=== PATIENT | male | born 1960 | race Caucasian/White ===

== ENCOUNTER 2018-03-11 18:23 | Inpatient (IN) | payer OTHER ==
--- NOTE | 2018-03-11 18:45 | CPEKG ---
Heart Rate: 161 RR Interval: 373 QRSD Interval: 68 QT Interval: 288 QTC Interval: 472 QRS Conger: 69 T Wave Conger: 52 EKG Severity - ABNORMAL ECG - EKG Impression: ATRIAL FIBRILLATION Electronically Signed By: Roya Ca 11-Mar-2018 21:37:43
--- NOTE | 2018-03-11 18:48 | EDPHY ---
HPI/HX/ROS/PE/MDM Narrative: CHIEF COMPLAINT: Chest pain, a-fib HISTORY OF PRESENT ILLNESS: The patient is a quadriplegic 57 y/o male complaining of intermittent mid- sternal chest pressure, onset several days ago. This morning he had indigestion and mild short of breath. He decided to present to his nurse practitioner and had an EKG preformed at 16:15, 3 hours ago, which revealed atrial fibrillation. He denies a sensation of palpitations, lightheadedness, or fainting. He has also had mid/low back spasms, a decreased appetite, increased tiredness, and more swelling in his legs for at least 5 days. These symptoms are similar to prior bladder infections. He is normally on a suppressive dose of Levaquin which he increased the past several days. No fever, chills, shortness of breath, palpitations, vomiting, diarrhea, headache. REVIEW OF SYSTEMS: Aside from elements discussed in the HPI, a comprehensive 10-point review of systems was reviewed and is negative. PAST MEDICAL HISTORY: Incomplete quadriplegic, suprapubic catheter, frequent bladder infections SOCIAL HISTORY: at bedside, lives in [place] VITAL SIGNS: Reviewed by me GENERAL: Pleasant, slightly pale, resting comfortably in no respiratory distress. HEENT: Atraumatic. Eyes: No icterus, no injection. Mouth: moist mucous membranes. No erythema or lesions. Neck: supple with no adenopathy. LUNGS: Breath sounds clear anteriorly and in upper lobes to auscultation bilaterally, no wheezes, rhonchi or rales. CARDIAC: Irregularly irregular, no rubs, murmurs or gallops. ABDOMEN: Abdomen is firm without tenderness, nondistended, bowel sounds normal. BACK: No CVA tenderness. EXTREMITIES: Chronic venostasis changes in lower extremities, 1+ pitting edema bilaterally, and cool to the touch. No trauma. NEURO: Alert and oriented, lower limbs are paretic, flaccid paralysis of the upper extremities, sparing the shoulders. SKIN: Warm and dry, no rash. PSYCHIATRIC: Normal mentation, no agitation. Portions of this note were transcribed by a medical planner. I personally performed a history, physical exam, medical decision making, and confirmed accuracy of information the transcribed note. ED Course: The patient is a quadriplegic 57 y/o male presenting with intermittent mid- sternal chest pressure, onset several days ago. He went to his physicians office and had an EKG preformed which revealed a-fib. On exam he has an irregularly irregular heart rate and clear breath sounds. He is also concerned that he has a bladder infection as he gets these frequently. EKG, chest x-ray, and labs ordered. 20mg IV Diltiazem and 1L IV NS given. I have also discussed plan for admission which the patient and his are comfortable with. 1842: 12-LEAD EKG: Please see the full report in [facility]. My interpretation: Atrial fibrillation with a rate of 161 1952: Patient chest x-ray reveals bilateral basilar atelectasis, worse on the left. Radiologist reading still pending. Patient received a bolus of Cardizem, 20 mg IV. Heart rate slowed to the upper 110s. He was placed on a Cardizem drip. 2013: Consulted with Dr. Ballesteros, pbx supervisor, regarding this patient. He will follow in the hospital. Discussed with Dr. Duc Ceballos, admitting physician. MDM: Differential diagnoses for the patient's presenting complaints was considered including but not limited to myocardial ischemia, acute coronary syndrome, pulmonary embolus, atrial fibrillation, atrial flutter, SVT, pneumonia, GI causes, reflux, indigestion, chest wall pain, pleural inflammation and pulmonary infectious causes. - Data Points Imaging Results: Imaging Impressions Chest X-Ray 03/11/18 19:08 Impression: 1. Possible posterior pneumonia. 2. Suspect cardiomegaly without obvious failure. Imaging: I viewed and interpreted images myself Laboratory Results: Laboratory Results 03/11/18 18:47 03/11/18 18:47 03/11/18 03/11/18 03/11/18 18:47 18:47 18:47 WBC 8.04 10^3/uL 10^3/uL (3.80-9.50) RBC 4.86 10^6/uL 10^6/uL (4.40-6.38) Hgb 13.9 g/dL g/dL (13.7-17.5) Hct 40.9 % % (40.0-51.0) MCV 84.2 fL fL (81.5-99.8) MCH 28.6 pg pg (27.9-34.1) MCHC 34.0 g/dL g/dL (32.4-36.7) RDW 14.0 % % (11.5-15.2) Plt Count 247 10^3/uL 10^3/uL (150-400) MPV 10.4 fL fL (8.7-11.7) Neut % (Auto) 64.8 % % (39.3-74.2) Lymph % (Auto) 25.0 % % (15.0-45.0) Edmunds % (Auto) 6.6 % % (4.5-13.0) Eos % (Auto) 2.5 % % (0.6-7.6) Baso % (Auto) 0.9 % % (0.3-1.7) Nucleat RBC Rel Count 0.0 % % (0.0-0.2) Absolute Neuts (auto) 5.21 10^3/uL 10^3/uL (1.70-6.50) Absolute Lymphs (auto) 2.01 10^3/uL 10^3/uL (1.00-3.00) Absolute Monos (auto) 0.53 10^3/uL 10^3/uL (0.30-0.80) Absolute Eos (auto) 0.20 10^3/uL 10^3/uL (0.03-0.40) Absolute Basos (auto) 0.07 10^3/uL 10^3/uL (0.02-0.10) Absolute Nucleated RBC 0.00 10^3/uL 10^3/uL (0-0.01) Immature Gran % 0.2 % % (0.0-1.1) Immature Gran # 0.02 10^3/uL 10^3/uL (0.00-0.10) Sodium 135 mEq/L mEq/L (135-145) Potassium 3.9 mEq/L mEq/L (3.5-5.2) Chloride 103 mEq/L mEq/L (97-110) Carbon Dioxide 20 mEq/l L mEq/l (22-31) Anion Gap 12 mEq/L mEq/L (8-16) BUN 14 mg/dL mg/dL (7-23) Creatinine 0.7 mg/dL mg/dL (0.7-1.3) Estimated GFR > 60 Glucose 86 mg/dL mg/dL (70-100) Calcium 9.1 mg/dL mg/dL (8.5-10.4) Total Bilirubin 1.3 mg/dL mg/dL (0.1-1.4) Conjugated Bilirubin 0.6 mg/dL H mg/dL (0.0-0.5) Unconjugated Bilirubin 0.7 mg/dL mg/dL (0.0-1.1) AST 31 IU/L IU/L (17-59) ALT 50 IU/L IU/L (21-72) Alkaline Phosphatase 93 IU/L IU/L (38-126) Troponin I 0.014 ng/mL ng/mL (0.000-0.034) NT-Pro-B Natriuret Pep 1520 pg/mL H pg/mL (0-125) Total Protein 7.3 g/dL g/dL (6.3-8.2) Albumin 4.2 g/dL g/dL (3.5-5.0) Lipase 61 IU/L IU/L (23-300) Medications Given: Discontinued Medications Diltiazem HCl (Cardizem 25 Mg/5 Ml Vial) 20 mg IVP EDNOW ONE Stop: 03/11/18 19:10 Last Admin: 03/11/18 19:26 Dose: 20 mg Sodium Chloride (Ns) 1,000 mls @ 0 mls/hr IV EDNOW ONE; Wide Open PRN Reason: Protocol Stop: 03/11/18 19:23 Last Admin: 03/11/18 19:25 Dose: 250 mls Diltiazem HCl 125 mg/ Dextrose 125 mls @ 0 mls/hr IV EDNOW ONE; As Directed PRN Reason: Protocol Stop: 03/11/18 19:55 Last Admin: 03/11/18 20:18 Dose: 125 mls General Time Seen by Provider: 03/11/18 18:46 Initial Vital Signs: Initial Vital Signs Temperature (C) 36.2 C 03/11/18 18:32 Heart Rate 108 H 03/11/18 18:32 Respiratory Rate 19 03/11/18 18:32 Blood Pressure 119/99 H 03/11/18 18:32 O2 Sat (%) 100 03/11/18 18:32 O2 Delivery Mode Room Air Allergies/Adverse Reactions: Sulfa (Sulfonamide Antibiotics) Allergy (Verified 03/11/18 20:01) Hives Home Medications: Medication Instructions Recorded Cyclobenzaprine [Flexeril 10 MG 10 mg PO HS 03/11/18 (*)] Herbals/Supplements -Info Only 1 ea PO DAILY 03/11/18 Ibuprofen [Motrin (*)] 800 mg PO BID 03/11/18 Oxybutynin Chloride [Oxybutynin 5 mg PO HS 03/11/18 Chloride Er] levOFLOXACIN [levAQUIN (*)] 250 mg PO DAILY 03/11/18 Departure - Departure Disposition: [facility] Inpatient Acute Clinical Impression: Atrial fibrillation Qualifiers: Atrial fibrillation type: unspecified Qualified Code(s): I48.91 - Unspecified atrial fibrillation Chest pain Qualifiers: Chest pain type: precordial pain Qualified Code(s): R07.2 - Precordial pain Condition: Fair Report Scribed for: Roya Ca Report Scribed by: Gillian Canas Date of Report: 03/11/18 Time of Report: 18:48
[2018-03-11 18:57] LABS: PLATELET COUNT 247 10^3/uL (150-400)
[2018-03-11] MEDS ORDERED: DILTIAZEM 25 MG/5 ML VIAL IVP ONE (19:09)
[2018-03-11] MEDS ORDERED: NS 1,000 ML IV ONE (19:22)
[2018-03-11] MEDS ORDERED: DILTIAZEM 125 MG in D5W 125 ML IV ONE (19:54)
[2018-03-11] MEDS ORDERED: NS 1,000 ML IV SCH (23:45)
[2018-03-11] MEDS ORDERED: HYDROCODONE/APAP 5/325 TAB PO PRN (23:59)
[2018-03-11] MEDS ORDERED: ONDANSETRON 4 MG/2 ML VIAL IVP PRN (23:59)
[2018-03-12] MEDS ORDERED: DILTIAZEM 125 MG in D5W 125 ML IV SCH (00:15)
[2018-03-12] MEDS: OXYBUTYNIN 5 MG EXT REL TAB PO SCH ×3 (00:50→20:24)
[2018-03-12] MEDS: ACETAMINOPHEN 325 MG TAB PO PRN ×3 (00:51→22:30)
[2018-03-12] MEDS: CYCLOBENZAPRINE 10 MG TAB PO SCH ×3 (00:51→20:24)
--- NOTE | 2018-03-12 03:26 | PDGENHP ---
History and Physical - Chief Complaint Chest pain and shortness of breath - History of Present Illness Source-patient provides history appears reliable. EMR was reviewed. HPI-this is a very pleasant 57-year-old gentleman with past medical history significant for incomplete quadriplegia, neurogenic bladder status post suprapubic catheter who presents emergency department today from his PCPs office with complaints of intermittent chest pain for the last several days to weeks as well as some dyspnea. Patient reports the last 6 days he has been particularly noting his symptoms which he is noted to be on the left side of his chest more like a burning sensation. Patient thought he was just having a little bit of indigestion and GI upset he did not take any medications to try to treat the pain. He denies any lightheadedness but possibly some palpitations right before arrival. He has noted a decline in his appetite and increasing fatigue particularly with exertion. Patient also has been noting increasing mid and low back pain spasms with she thought perhaps were related to UTI that was developing. Patient with a history of UTI given his history of suprapubic catheter which is changed by his urologist on a monthly basis. He is chronically on suppressive therapy with Levaquin. Patient with chronic lower extremity edema with subsequent development of vascular insufficiency and wounds. Patient denies any fevers or chills. He does note he feels a little bit warmer in the last few days than previously. He is also complaining of some nasal congestion sore throat related to his allergies. History Information - Allergies/Home Medication List Allergies/Adverse Reactions: Sulfa (Sulfonamide Antibiotics) Allergy (Verified 03/11/18 20:01) Hives Home Medications: Cyclobenzaprine [Flexeril 10 MG (*)] 10 mg PO HS 03/11/18 [Last Taken 03/10/18] Herbals/Supplements -Info Only 1 ea PO DAILY 03/11/18 [Last Taken 03/11/18] Ibuprofen [Motrin (*)] 800 mg PO BID 03/11/18 [Last Taken 03/11/18] Oxybutynin Chloride [Oxybutynin Chloride Er] 5 mg PO HS 03/11/18 [Last Taken ] levOFLOXACIN [levAQUIN (*)] 250 mg PO DAILY 03/11/18 [Last Taken 03/11/18] I have personally reviewed and updated: family history, medical history, social history, surgical history - Past Medical History Additional medical history: Incomplete quadriplegia wheelchair, recurrent UTI with suprapubic catheter in place - Surgical History Additional surgical history: Right hip surgery, suprapubic catheter - Family History Additional family history: Mother with history atrial fibrillation and developed myasthenia gravis age 70s. - Social History Smoking Status: Never smoked Alcohol Use: Occasionally (Once monthly) Drug Use: None Additional social history: Patient is lives with his . Wheelchair dependent. Course status-DNR DNI Review of Systems Review of Systems: ROS: 10pt was reviewed & negative except for what was stated in HPI & below Constitutional: Reports: other (Increased fatigue). Denies: chills, fever, weakness EENMT: Reports: nose congestion, other (Scratchy throat) Cardiac: Reports: chest pain, edema (Chronic). Denies: lightheadedness, palpitations Respiratory: Reports: shortness of breath. Denies: orthopnea, wheezing Gastrointestinal: Denies: vomitting, abdominal pain, abdominal distention, diarrhea, nausea Genitourinary: Reports: other (Suprapubic catheter in place) Muscolosketal: Reports: back pain (Occasional spasm). Denies: muscle pain Skin: Reports: no symptoms, lesions (Chronic wounds to bilateral lower legs.). Denies: rash Neurological: Reports: no symptoms, other (Incomplete quadriplegia). Denies: anxiety, depressed Physical Exam Physical Exam: Temp Pulse Resp BP Pulse Ox 36.4 C 105 H 18 136/96 H 95 03/12/18 00:05 03/12/18 00:05 03/12/18 00:05 03/12/18 00:05 03/12/18 00:05 Constitutional: no apparent distress, appears nourished, obese, other (NAD. Pleasant adult gentleman sitting up in bed.) Eyes: PERRL, anicteric sclera, EOMI, No scleral injection Ears, Nose, Mouth, Throat: moist mucous membranes, other (No nasal discharge), No poor dentition Cardiovascular: regular rate and rhythym (Slightly distant heart sounds.), no murmur, rub, or gallop, tachycardia (90s), edema (Two to 3+ pitting edema with chronic skin changes present.) Peripheral Pulses: 0: dorsalis-pedis (R) (Limited secondary to edema), dorsalis- pedis (L) (Limited secondary to edema) Respiratory: no respiratory distress, no rales or rhonchi, clear to auscultation , reduced air movement (Diminished bibasilarly.), No expiratory wheeze, No bronchial breath sounds Gastrointestinal: normoactive bowel sounds, soft, non-tender abdomen, no palpable masses, other (Obese abdomen soft but full), No tenderness, No distension Genitourinary: other (Suprapubic catheter in place.) Skin: warm, normal color, no rashes or abrasions, no fluctuance, No erythema Musculoskeletal: other (Patient with incomplete quadriplegia he is able to move his arms but has limited fine motor capabilities.) Neurologic: AAOx3, CN II-XII Intact, other (Extremity movement as noted above.) , No facial droop Psychiatric: interacting appropriately, not anxious, not encephalopathic, thought process linear, other (Patient is pleasant and in good spirits.) Lab Data & Imaging Review 03/12/18 03:46 03/11/18 18:47 Selected Entries 03/11/18 03/11/18 03/12/18 18:32 21:49 00:05 Blood Pressure Automatic Method Heart Rate 108 H 105 H Respiratory 19 18 Rate O2 Sat (%) 100 95 Temperature (C) 36.2 C 36.4 C Blood Pressure 119/99 H 124/86 H 136/96 H Mean Arterial 105 H 98 109 H Pressure (MAP) Activity During At Rest Vital Signs O2 Delivery Room Air Room Air Mode Blood Pressure Right Source Upper Arm Heart Rate/ Monitor Temperature Oral Oral Source Heart Rate Heart Rate/ Source Monitor Laboratory Tests 03/11/18 03/11/18 03/11/18 18:47 18:47 18:47 WBC 8.04 RBC 4.86 Hgb 13.9 Hct 40.9 MCV 84.2 MCH 28.6 MCHC 34.0 RDW 14.0 Plt Count 247 MPV 10.4 Neut % (Auto) 64.8 Lymph % (Auto) 25.0 Elk % (Auto) 6.6 Eos % (Auto) 2.5 Baso % (Auto) 0.9 Nucleat RBC Rel Count 0.0 Absolute Neuts (auto) 5.21 Absolute Lymphs (auto) 2.01 Absolute Monos (auto) 0.53 Absolute Eos (auto) 0.20 Absolute Basos (auto) 0.07 Absolute Nucleated RBC 0.00 Immature Gran % 0.2 Immature Gran # 0.02 Sodium 135 Potassium 3.9 Chloride 103 Carbon Dioxide 20 L Anion Gap 12 BUN 14 Creatinine 0.7 Estimated GFR > 60 Glucose 86 Calcium 9.1 Total Bilirubin 1.3 Conjugated Bilirubin 0.6 H Unconjugated Bilirubin 0.7 AST 31 ALT 50 Alkaline Phosphatase 93 Troponin I 0.014 NT-Pro-B Natriuret Pep 1520 H Total Protein 7.3 Albumin 4.2 Lipase 61 Urine Color Urine Appearance Urine pH Ur Specific Kirkland Urine Protein Urine Ketones Urine Blood Urine Nitrate Urine Bilirubin Urine Urobilinogen Ur Leukocyte Esterase Urine RBC Urine WBC Ur Epithelial Cells Urine Glucose 03/11/18 20:00 WBC RBC Hgb Hct MCV MCH MCHC RDW Plt Count MPV Neut % (Auto) Lymph % (Auto) Elk % (Auto) Eos % (Auto) Baso % (Auto) Nucleat RBC Rel Count Absolute Neuts (auto) Absolute Lymphs (auto) Absolute Monos (auto) Absolute Eos (auto) Absolute Basos (auto) Absolute Nucleated RBC Immature Gran % Immature Gran # Sodium Potassium Chloride Carbon Dioxide Anion Gap BUN Creatinine Estimated GFR Glucose Calcium Total Bilirubin Conjugated Bilirubin Unconjugated Bilirubin AST ALT Alkaline Phosphatase Troponin I NT-Pro-B Natriuret Pep Total Protein Albumin Lipase Urine Color PALE YELLOW Urine Appearance CLEAR Urine pH 5.0 Ur Specific Kirkland 1.004 Urine Protein NEGATIVE Urine Ketones NEGATIVE Urine Blood 2+ H Urine Nitrate POSITIVE H Urine Bilirubin NEGATIVE Urine Urobilinogen NEGATIVE Ur Leukocyte Esterase 2+ H Urine RBC 1-3 Urine WBC 5-10 H Ur Epithelial Cells NONE SEEN Urine Glucose NEGATIVE Imaging Review: Chest, AP and Lateral, 19:01 History: Atrial fibrillation, history of paraplegia Comparison: None Findings: Inspiratory phase is less than optimal on the frontal view. There may be cardiomegaly. The pulmonary vascularity is not obviously plethoric. There are small bilateral pleural effusions. There is retrocardiac consolidation possibly representing pneumonia. There is possibly a hiatal hernia present behind the heart. Impression: 1. Possible posterior pneumonia. 2. Suspect cardiomegaly without obvious failure. Visualized and Interpreted Chest x-ray results: Yes Visualized and Interpreted imaging results: Yes EKG additional interpertation: Atrial fib with RVR rate in the 160s. Assessment & Plan Assessment: Pleasant 57-year-old gentleman with history of incomplete quadriplegia due to accident presents home from PCPs office with complaints of chest pain and dyspnea found to be in AFib with RVR. New onset Atrial fibrillation with RVR (Acute) - patient with complaints of intermittent episodes of chest pain and dyspnea over the last several days to weeks. Will place patient on therapeutic Lovenox while we await Cardiology consult in the morning. Request day hospitalist to follow up with consultation. Will also obtain echocardiogram and check a TSH. Patient not surprisingly has elevated BNP given patient's significant tachycardia and vascular congestion likely secondary to AFib. Patient continues on a diltiazem drip with improvement in his rate from 160s down to the 90s. He has not yet converted but will continue to monitor on telemetry. Chest pain (Acute) -likely secondary to some demand in setting of significant tachycardia and pulmonary edema. Patient's troponin is negative there does not appear to be any acute findings. Now the patient's rate has improved will plan to repeat an EKG this morning. Dyspnea - likely related to rate. Chest x-ray also noted to have some vascular congestion and possibly infiltrate put in the posterior lung noble. Patient is quadriplegic some with limited inspiratory effort. He is afebrile and without any upper respiratory type symptoms at this time will hold off on any antibiotics. Patient is not hypoxic and his respiratory status is reported to have improved now that his rate is in the 90s and also controlled. Chronic medical issues Incomplete quadriplegia - supportive care. Chronic suprapubic catheter with asymptomatic bacteria likely colonized. Patient is afebrile. Continue his antibiotic prophylaxis. Chronic lower extremity edema with chronic skin changes wound care consult. FEN - IV fluids for gentle hydration overnight. Electrolyte monitoring replacement if needed. Cardiac diet ordered. PPX-status post therapeutic Lovenox. Patient is not a candidate for SCDs secondary to his chronic lower extremity edema and wounds. Cor status is DNR DNI Disposition-patient has been admitted inpatient status on PCU floor for close cardiac monitoring. Anticipate greater than 2 midnight stay given persistence the patient's AFib, tachycardia and need for further evaluation.
[2018-03-12 04:17] LABS: PLATELET COUNT 221 10^3/uL (150-400)
[2018-03-12 04:32] LABS: INR 1.14 (0.83-1.16); PROTIME(PATIENT) 14.8 SEC (12.0-15.0)
[2018-03-12] MEDS ORDERED: ENOXAPARIN 40 MG/0.4 ML SYR SC SCH (09:00)
--- NOTE | 2018-03-12 09:11 | CPEKG ---
Heart Rate: 108 RR Interval: 556 QRSD Interval: 72 QT Interval: 344 QTC Interval: 461 QRS Girard: 58 T Wave Girard: 82 EKG Severity - ABNORMAL ECG - EKG Impression: ATRIAL FIBRILLATION/FLUTTER EKG Impression: No significant change from March 11, 2018 Electronically Signed By: Jersey Horton 12-Mar-2018 10:43:04
--- NOTE | 2018-03-12 09:26 | PDMN ---
Medical Necessity Medical necessity: M505 afib- A-1 day: new onset afib with RVR, persistent tachycardia, dyspnea, Cp , pt is quadriplegic with limited inspiratory effort., CXR shows vascular congestion and poss infiltrate in posterior lung noble,- poss PNA- suspect cardiomegaly without obvious failure. sm. bilateral pleural effusions. anticipate > 2 midnights ongoing med nec care , further monitoring , eval and tx.
[2018-03-12] MEDS ORDERED: ENOXAPARIN 60 MG/0.6 ML SYR SC ONE (11:45)
--- NOTE | 2018-03-12 12:45 | ECHO ---
[email or web address] [address] [address] Main: [phone] Fax: [email or web address] Echocardiogram Name: WILBER SANTOS MR#: [id number] Study Date: 03/12/2018 Study Time: 11:58 AM Date of : 1960 Age: 57 year(s) Height: 185.4 cm (73 in.) Weight: 103.87 kg (229 lb.) BSA: 2.28 m2 Gender: Male Examination: Echo Indication: new afib Image Quality: Technically Difficult Contrast: Requested by: Patrice Pleitez BP: 133 mmHg/111 mmHg Heart Rate: Rhythm: Atrial fibrillation Indication: new afib Procedure Staff Career Services Assistant: Candy Worrell [facility] Reading Physician: Patrice Hood MD Requesting Provider: Conclusions: Normal size left ventricle. Borderline concentric LV hypertrophy. Low normal left ventricular systolic function. EF is 52 %. The mitral valve is normal in appearance. Trivial to mild mitral regurgitation. Aortic valve is not well visualized. There is no aortic valve regurgitation. No aortic valve stenosis is present. Moderate tricuspid regurgitation is present. The pulmonary artery pressure is normal. Measurements: Chambers Valvular Assessment AV/MV Valvular Assessment TV/PV Normal Normal Normal Name Value Range Name Value Range Name Value Range Ao Jimena (MM): 3.4 cm (2.2 cm-3.7 AV Vmax: 1.37 m/s (1 m/s-1.7 TR Vmax: 2.46 mm/s ( - ) cm) m/s) TR PGmax: 24 mmHg ( - ) IVSd (2D): 1.0 cm (0.6 cm-1.1 AV maxP mmHg ( - ) syst. PAP: 29 mmHg ( - ) cm) LVOT Vmax: 0.97 m/s (0.7 m/s-1.1 PV Vmax: 0.99 m/s (0.6 m/s-0.9 LVDd (2D): 4.5 cm (4.2 cm-5.9 m/s) m/s) cm) MV E Vmax: 0.68 m/s ( - ) PV PGmax: 4 mmHg ( - ) LVDs (2D): 3.3 cm (2.1 cm-4 cm) LVPWd (2D): 1.0 cm (0.6 cm-1 cm) LVEF (2D): 52 (>=54 %) RVDd(2D): 3.7 cm (1.9 cm-3.8 cmmm) Patient: WILBER SANTOS Study Date: 03/12/2018 Page 1 of 2 11:58 AM Continued Measurements: Chambers Valvular Assessment AV/MV Valvular Assessment TV/PV Name Value Name Value Name Value LADs: 3.1 cm MV E' Septal: 0.09 m/s CVP (est.): 5 mmHg LADs Lon.2 cm MV E/E' Septal: 7.70 LA Area: 17.5 cm2 MV E/E' Lateral: 6.40 Additional Vessels Name Value Ao Ascendin.5 cm Findings: Left Ventricle: Normal size left ventricle. Borderline concentric LV hypertrophy. Low normal left ventricular systolic function. EF is 52 %. Unable to assess diastolic dysfunction. Right Ventricle: Normal size right ventricle. Normal RV function. Left Atrium: The left atrium is normal in size. Right Atrium: The right atrium is normal in size. Mitral Valve: The mitral valve is normal in appearance. Trivial to mild mitral regurgitation. No mitral stenosis is present. Aortic Valve: Aortic valve is not well visualized. There is no aortic valve regurgitation. No aortic valve stenosis is present. Tricuspid Valve: The tricuspid valve is normal in appearance and function. Moderate tricuspid regurgitation is present. The pulmonary artery pressure is normal. Right ventricular systolic pressure measures 29mmHg. Pulmonic Valve: The pulmonic valve is normal in appearance. There is no pulmonic regurgitation seen. Aorta: Normal size aortic root measuring 3.4 cm. Normal size ascending aorta measuring 3.5 cm. IVC: The IVC is not well visualized. Pericardium: No pericardial effusion. (No Signature Object) Patient: WILBER SANTOS Study Date: 03/12/2018 Page 2 of 2 11:58 AM [id number]
[2018-03-12] MEDS ORDERED: FUROSEMIDE 20 MG/2 ML VIAL IVP ONE ×2 (14:04→16:45)
[2018-03-12] MEDS ORDERED: ATROPINE SULFATE 1 MG/10 ML SYR IVP ONE (14:33)
--- NOTE | 2018-03-12 15:02 | ASMTCASEMG ---
Living Arrangements What is your living Answers: With Spouse arrangement? Who do you live with? Type Of Residence What kind of residence do Answers: House you live in? Discharge Plan Comments Coordination Status Comments Notes: Pts case discussed in tx rounds. Pt is a 57 y/o man admitted for a new onset of afib, chest pain and an UTI. Pt is an incomplete quad. Cardiology is consulting on this case. No therapies ordered at this time. Pt does not think he needs any additional services at this time. Pt reports that his is his primary caregiver. Pt reports having a lift at home and reports that his son lives nearby. CM available for changes. Plan: Independent Date Signed: 03/12/2018 03:01 PM Electronically Signed By:RODNEY Saxena
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
[2018-03-12] MEDS: DILTIAZEM 30 MG TAB PO SCH ×2 (16:54→20:23)
[2018-03-12] MEDS: ENOXAPARIN 100 MG/ML SYR SC SCH (22:30)
--- NOTE | 2018-03-12 22:50 | HOSPPROG ---
Hospitalist Progress Note Assessment/Plan: Assessment: 57 yo M p/w acute chest pain and dyspnea in setting of new diagnosis atrial fibrillation w/ RVR Plan: # Chest pain. Acute, new problem, further w/u indicated. Unclear if 2/2 symptomatic afib or angina, currently less severe now that RVR controlled - d/w Dr. Barron, he recommends lexiscan stress in AM to eval, as it is unclear if angina provoked his Afib - potential for PE is moot point, as patient will be systemically anticoagulated regardless, so will not pursue additional scan # Atrial fibrillation. Acute RVR, new diagnosis, unclear precipitant, ongoing afib w/ rate 90-100 on tele (personally interpreted) - d/w patient, plan to overlap dilt gtt w/ introduction of PO dilt 30mg q6, and , if patient remains in Afib in AM, cardiology will DCCV/MATTI - TSH wnl - Echo w/ mildly reduced EF, LVH, mod TR - started on lovenox 100 bid, anticipated adjusting to either coumadin or DOAC in AM # Acute systolic and diastolic CHF Exacerbation. 2/2 LVH and reduced filling time w/ RVR, mildly reduced EF on echo likely rate related - CXR w/ mild interstitial infiltrates, given 20mg IV lasix today, monitor I/O, consider repeating in AM if requiring supp o2 - repeat Cr in AM # Paraplegia. S/p spinal chord injury, wheelchair bound, ongoing asst ADLs, patient reports he will be able to transition home s/p hospitalization # Chronic bacturia. POA, w/ SP catheter, unclear if he has UTI, monitor UCX and WBC - cont ppx Abx # Pressure injury. POA, L great toe abrasion, wound care consult Diet. Regular PPx. High risk, on lovenox Code. DNR Dispo. ADD uncertain, earliest 03/13 PM s/p stabilization of rhythm. Subjective: no active chest pain, not lightheaded Objective: Vital Signs Temp Pulse Resp BP Pulse Ox 36.4 C 101 H 20 128/96 H 96 03/12/18 16:00 03/12/18 16:00 03/12/18 16:00 03/12/18 16:00 03/12/18 16:00 Laboratory Results 03/12/18 03:46 03/12/18 03:46 03/11/18 03/12/18 03/13/18 05:59 05:59 05:59 Intake Total 1309 1700 Output Total 2049 2700 Balance -741 -1000 PT 14.8 SEC (12.0-15.0) 03/12/18 03:46 INR 1.14 (0.83-1.16) 03/12/18 03:46 - Physical Exam Constitutional: no apparent distress, not in pain, chronically ill appearing, No uncomfortable Cardiovascular: irregularly irregular, tachycardia, edema (1+ bilt LE), No systolic murmur Respiratory: reduced air movement, expiratory wheeze, inspiratory crackles, bronchial breath sounds, respiratory distress Gastrointestinal: normoactive bowel sounds, soft, non-tender abdomen, no palpable masses Skin: other (wound LLE great toe) Neurologic: AAOx3, sensation intact bilaterally Psychiatric: interacting appropriately, not anxious, not encephalopathic, thought process linear ICD10 Worksheet Patient Problems: Problems Problem Status Onset Atrial fibrillation Acute Chest pain Acute
[2018-03-13] MEDS: DILTIAZEM 30 MG TAB PO SCH ×4 (01:39→21:19)
[2018-03-13] MEDS ORDERED: ATROPINE SULFATE 1 MG/10 ML SYR IVP ONE ×2 (06:00→08:15)
[2018-03-13] MEDS ORDERED: REGADENOSON 0.4 MG/5 ML SYR IVP ONE (08:54)
[2018-03-13] MEDS ORDERED: CEFEPIME HCL 1 GM in STERILE WATER INJ 11.3 ML IV SCH ×2 (09:28→10:00)
--- NOTE | 2018-03-13 10:04 | CPR ---
[f rep st] NONINVASIVE CARDIAC PROCEDURE REPORT DATE OF PROCEDURE: 03/13/2018 PROCEDURE: Lexiscan nuclear stress test. REASON FOR TEST: 1. Atrial flutter. 2. Chest discomfort. Resting EKG shows atrial fib/ flutter with a ventricular rate of 149, resting blood pressure 136/85, oxygen saturation 97%. He denies chest pain, dizziness or lightheadedness. He is a paraplegic. STRESS PORTION: Lexiscan was injected rapidly, followed by saline flush. Cardiolite was then injected, followed by saline flush. He noted mild shortness of breath. He had a blood pressure 153/115, oxygen saturation 99%, max heart rate 148. He recovered nicely. He remains in atrial flutter. Blood pressure difficult to get 145/90, oxygen saturation 97%. At this time, he currently is stable for nuclear imaging. Patrice Ballesteros MD supervising physician. /[id number]/MODL MTDD
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
[2018-03-13] MEDS: ENOXAPARIN 100 MG/ML SYR SC SCH ×2 (10:41→21:19)
[2018-03-13] MEDS ORDERED: ATROPINE SULFATE 1 MG/10 ML SYR ONE (11:00)
--- NOTE | 2018-03-13 11:52 | CPEKG ---
Heart Rate: 89 RR Interval: 674 P-R Interval: 172 QRSD Interval: 72 QT Interval: 392 QTC Interval: 477 P Jackson: 59 QRS Jackson: 52 T Wave Jackson: 59 EKG Severity - ABNORMAL ECG - EKG Impression: SINUS RHYTHM EKG Impression: SUPRAVENTRICULAR BIGEMINY EKG Impression: PROBABLE LEFT ATRIAL ABNORMALITY EKG Impression: BORDERLINE PROLONGED QT INTERVAL EKG Impression: LATERAL T WAVE ABNORMALITY EKG Impression: RESOLUTION OF ATRIAL FIBRILLATION/FLUTTER SINCE MARCH 12, 2018 Electronically Signed By: Jersey Horton 14-Mar-2018 07:35:05
[2018-03-13] MEDS ORDERED: PROPOFOL 200 MG/20 ML VIAL ONE (11:55)
[2018-03-13] MEDS ORDERED: LIDOCAINE 2% 5 ML SDV ONE (11:57)
--- NOTE | 2018-03-13 12:06 | HOSPPROG ---
Hospitalist Progress Note Assessment/Plan: #New atrial fibrillation with RVR -infection vs. ischemia. Nuclear stress abnormal; rest images tomorrow -successful cardioversion. Lovenox, Dilt #Paraplegia: Baclofen for spasms #Recurrent UTI: due to chronic munoz. Pseudomonas on culture. Rec cefepime until cultures back, but patient decline and wants to stay on LQ. Will change it to treatment dose #Acute decompensated systolic/diastolic HR: stress pending. A fib likely contributing. Gentle diuresis #Left great toe pressure injury: present at admission. Wound care #Diet: regular #DVT ppx: Lovenox #Disp: cont inpatient admission for further cardiac testing, telemetry Subjective: chest feels tight this morning. No dizziness or lightheadedness Objective: Vital Signs Temp Pulse Resp BP Pulse Ox 36.4 C 125 H 16 120/86 H 96 03/13/18 07:19 03/13/18 07:19 03/13/18 07:19 03/13/18 07:19 03/13/18 07:19 Laboratory Results 03/13/18 03:52 03/13/18 03:52 03/12/18 03/13/18 03/14/18 05:59 05:59 05:59 Intake Total 1309 1770 Output Total 2050 2850 500 Balance -741 -8815 -500 PT 14.8 SEC (12.0-15.0) 03/12/18 03:46 INR 1.14 (0.83-1.16) 03/12/18 03:46 - Time Spent With Patient Time Spent with Patient: greater than 35 minutes Time Spent with Patient: Greater than 35 minutes spent on this patients care, greater than 50% of time spent counseling, educating, and coordinating care regarding the above mentioned plan. - Physical Exam Constitutional: no apparent distress Eyes: PERRL Ears, Nose, Mouth, Throat: moist mucous membranes Cardiovascular: irregularly irregular, tachycardia Respiratory: no respiratory distress Gastrointestinal: normoactive bowel sounds Genitourinary: other (suprapubic catheter in place with yellow urine) Skin: warm Musculoskeletal: full muscle strength Neurologic: AAOx3, CN II-XII Intact Psychiatric: interacting appropriately ICD10 Worksheet Patient Problems: Problems Problem Status Onset Atrial fibrillation Acute Chest pain Acute
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
--- NOTE | 2018-03-13 12:15 | ECHO ---
[email or web address] [address] Main: [phone] Fax: Transesophageal Echocardiography Name: WILBER SANTOS MR#: [id number] Study Date: 03/13/2018 Study Time: 11:15 AM Date of : 1960 Age: 57 year(s) Height: ( ) Weight: ( ) BSA: Gender: Male Examination: MATTI Indication: Pre Cardioversion Image Quality: Contrast: Requested by: John Ceballos Heart Rate: Rhythm: BP: / Procedure Staff Nicking Machine Operator: Clay Ortega RDCS Reading Physician: Woodrow Amador MD Requesting Provider: MATTI Exam Details Conclusions: Normal global systolic LV function. Good color flow doppler in the left atrial appendage. No thrombus in left appendage. There is no evidence of CHULA Thrombus noted. Proceeded with successful elective DC cardioversion.. Measurements: Chambers Valvular Assessment AV/MV Valvular Assessment TV/PV Normal Normal Normal Name Value Range Name Value Range Name Value Range Additional Measurements: Findings: Left Ventricle: Normal global systolic LV function. Left Atrial Appendage: Good color flow doppler in the left atrial appendage. No thrombus in left appendage. There is no evidence of CHULA Thrombus noted. Proceeded with successful elective DC cardioversion.. l1n Patient: WILBER SANTOS Study Date: 03/13/2018 Page 1 of 2 11:15 AM (No Signature Object) Patient: WILBER SANTOS Study Date: 03/13/2018 Page 2 of 2 11:15 AM [id number]
--- NOTE | 2018-03-13 12:26 | PDANEPAE ---
ANE History of Present Illness afib - Nasim/cv ANE Past Medical History - Cardiovascular History Hx Hypertension: No Hx Arrhythmias: Yes Hx Chest Pain: No Hx Coronary Artery / Peripheral Vascular Disease: No Hx CHF / Valvular Disease: No Hx Palpitations: No - Pulmonary History Hx COPD: No Hx Asthma/Reactive Airway Disease: No Hx Recent Upper Respiratory Infection: No Hx Oxygen in Use at Home: No Hx Sleep Apnea: No - Neurologic History Hx Cerebrovascular Accident: No Hx Seizures: No Hx Dementia: No Neurologic History Comment: C4-5-6 partial quad - Endocrine History Hx Diabetes: No Hypothyroid: No Hyperthyroid: No - Renal History Hx Renal Disorders: Yes Renal History Comment: suprapubic catheter, recurrent UTIs - Liver History Hx Hepatic Disorders: No - Neurological & Psychiatric Hx Hx Neurological and Psychiatric Disorders: No - Chronic Pain History Chronic Pain: Yes ANE Review of Systems Review of Systems: - Exercise capacity Exercise capacity: limited by disability ANE Patient History - Allergies Allergies/Adverse Reactions: Sulfa (Sulfonamide Antibiotics) Allergy (Verified 03/11/18 20:01) Hives - Home Medications Home Medications: Cyclobenzaprine [Flexeril 10 MG (*)] 10 mg PO HS 03/11/18 [Last Taken 03/10/18] Herbals/Supplements -Info Only 1 ea PO DAILY 03/11/18 [Last Taken 03/11/18] Ibuprofen [Motrin (*)] 800 mg PO BID 03/11/18 [Last Taken 03/11/18] Oxybutynin Chloride [Oxybutynin Chloride Er] 5 mg PO HS 03/11/18 [Last Taken ] levOFLOXACIN [levAQUIN (*)] 250 mg PO DAILY 03/11/18 [Last Taken 03/11/18] - Anes Hx Anes Hx: no prior problems - Smoking Hx Smoking Status: Never smoked - Alcohol Use Alcohol Use: Occasionally (Once monthly) ANE Labs/Vital Signs - Labs Result Diagrams: 03/13/18 03:52 03/13/18 03:52 - Vital Signs Blood Pressure: 120/86 Heart Rate: 125 Respiratory Rate: 16 O2 Sat (%): 96 Height: 185.42 cm Weight: 107.6 kg ANE Physical Exam - Airway Mallampati Score: Class 2 Mouth exam: normal dental/mouth exam - Pulmonary Pulmonary: no respiratory distress - Cardiovascular Cardiovascular: irregularly irregular - ASA Status ASA Status: II ANE Anesthesia Plan Anesthesia Plan: GA with mask
--- NOTE | 2018-03-13 12:27 | POSTANESTH ---
Post Anesthetic Evaluation Cardiovascular Status: Normal, Stable Respiratory Status: Normal, Stable Level of Consciousness/Mental Status: Can Participate in Eval Pain Control: Adequate, Prn Tx Ordered Nausea/Vomiting Control: Adequate, Prn Tx Ordered Complications Possibly Related to Anesthesia: None Noted (recovered in rm 219, report to nurse)
--- NOTE | 2018-03-13 13:28 | ASMTCMCOM ---
CM Note CM Note Notes: Chart reviewed. Patient care discussed in rounds. No therapies ordered. Patient is an incomplete quadrapalegic and likely at baseline.CM to luz elena. Date Signed: 03/13/2018 01:27 PM Electronically Signed By:Yu Del Rosario RN
--- NOTE | 2018-03-13 17:54 | CPEKG ---
Heart Rate: 89 RR Interval: 674 P-R Interval: 176 QRSD Interval: 74 QT Interval: 360 QTC Interval: 439 P Grapeview: 57 QRS Grapeview: 48 EKG Severity - ABNORMAL ECG - EKG Impression: SINUS RHYTHM EKG Impression: SUPRAVENTRICULAR BIGEMINY EKG Impression: NONSPECIFIC T ABNORMALITIES, LATERAL LEADS EKG Impression: POSSIBLE LEFT ATRIAL ABNORMALITY. EKG Impression: NO SIGNIFICANT CHANGE SINCE MARCH 13, 2018, 11:49 Electronically Signed By: Jersey Horton 14-Mar-2018 07:33:30
[2018-03-13] MEDS: OXYBUTYNIN 5 MG EXT REL TAB PO SCH (21:19)
[2018-03-13] MEDS: ACETAMINOPHEN 325 MG TAB PO PRN (21:54)
[2018-03-13] MEDS: CYCLOBENZAPRINE 10 MG TAB PO PRN (21:55)
[2018-03-14] MEDS: DILTIAZEM 30 MG TAB PO SCH ×4 (04:57→21:34)
[2018-03-14] MEDS ORDERED: DILTIAZEM 25 MG/5 ML VIAL IVP SCH (06:00)
--- NOTE | 2018-03-14 09:10 | SOAPPROG ---
SAUL Progress Note Assessment/Plan: 1. Chest pain - Pt presents with recent onset of chest pain. ? secondary to A- fib vs CAD. EKG with no acute ST or T changes. Troponin wnl. Stress images on 03/13 with inferior perfusion defect. Rest images scheduled for today. --> Await stress test results. Consider angiogram in am if abnormal. 2. Atrial fibrillation - Pt presents with a recent diagnosis of A-fib. TSH wnl. Echocardiogram with mildly reduced LVEF but otherwise unremarkable. He is s/p MATTI/CV on 03/13 with return of NSR. However, he went back into A-fib later in the day. Will load with IV amiodarone and consider repeat DCCV in 2 days. --> IV amiodarone --> Continue diltiazem as needed for rate control --> Continue lovenox for anticoagulation. Start NOAC vs coumadin when coronary assessment completed 3. Diastolic CHF Exacerbation - Pt presented with diastolic CHF in setting of A- fib and RVR. Symptoms improved with diuresis. Subjective: No orthopnea or PND chest dyscomfort associated with elevated heart rates Objective: Vital Signs Temp Pulse Resp BP Pulse Ox 36.6 C 138 H 22 H 130/107 H 99 03/14/18 06:05 03/14/18 06:09 03/14/18 06:05 03/14/18 06:05 03/14/18 06:05 Laboratory Results 03/13/18 03:52 03/13/18 03:52 03/13/18 03/14/18 03/15/18 05:59 05:59 05:59 Intake Total 1770 1500 Output Total 2850 1100 350 Balance -1080 400 -350 PT 14.8 SEC (12.0-15.0) 03/12/18 03:46 INR 1.14 (0.83-1.16) 03/12/18 03:46 Physical Exam - Physical Exam General Appearance: alert, no apparent distress Respiratory: lungs clear Cardiac/Chest: tachycardia, irregularly irregular Abdomen: non-tender, soft Extremities: pedal edema Neuro/Psych: alert, oriented x 3 ICD10 Worksheet Patient Problems: Problems Problem Status Onset Atrial fibrillation Acute Chest pain Acute
[2018-03-14] MEDS ORDERED: AMIODARONE HCL 200 ML IV ONE (09:43)
[2018-03-14] MEDS ORDERED: AMIODARONE HCL 540 MG in D5W 300 ML IV ONE ×2 (09:43→16:00)
[2018-03-14] MEDS ORDERED: AMIODARONE HCL 100 ML IV ONE (09:43)
[2018-03-14] MEDS: CEFEPIME HCL 1 GM in STERILE WATER INJ 11.3 ML IV SCH ×2 (10:50→21:34)
[2018-03-14] MEDS: ENOXAPARIN 100 MG/ML SYR SC SCH ×2 (10:50→21:34)
--- NOTE | 2018-03-14 11:00 | HOSPPROG ---
Hospitalist Progress Note Assessment/Plan: #New atrial fibrillation with RVR -infection vs. ischemia. Nuclear stress abnormal; rest images today -back into a fib after cardioversion. Cont diltiazem. Add Amiodarone bolus today. Cont treatment dose Lovenox; will need oral AC at discharge. #Chest pain: stress with inferior perfusion defect. Rest images today; cath if abnormal #Paraplegia: Baclofen for spasms #Recurrent UTI: due to chronic munoz. Pseudomonas resistant to LQ; start Cefepime today #Acute decompensated diastolic HF: improved with gentle diuresis #Left great toe pressure injury: present at admission. Wound care #Diet: regular #DVT ppx: Lovenox #Disp: cont inpatient admission for further cardiac testing, telemetry # Subjective: feel heart racing Objective: Vital Signs Temp Pulse Resp BP Pulse Ox 36.8 C 103 H 18 145/112 H 99 03/14/18 08:00 03/14/18 08:00 03/14/18 08:00 03/14/18 08:00 03/14/18 08:00 Laboratory Results 03/13/18 03:52 03/13/18 03:52 03/13/18 03/14/18 03/15/18 05:59 05:59 05:59 Intake Total 1770 1500 Output Total 2850 1100 350 Balance -1080 400 -350 PT 14.8 SEC (12.0-15.0) 03/12/18 03:46 INR 1.14 (0.83-1.16) 03/12/18 03:46 - Time Spent With Patient Time Spent with Patient: greater than 35 minutes Time Spent with Patient: Greater than 35 minutes spent on this patients care, greater than 50% of time spent counseling, educating, and coordinating care regarding the above mentioned plan. - Physical Exam Constitutional: uncomfortable Eyes: PERRL Ears, Nose, Mouth, Throat: moist mucous membranes Cardiovascular: irregularly irregular, tachycardia Respiratory: no respiratory distress Gastrointestinal: normoactive bowel sounds Genitourinary: munoz in urethra (chronic suprapubic catheter) Skin: other (chronic venous changes over BL legs. Mild redness (baseline per family). No purulence or open wound over legs) Musculoskeletal: other (left great toe with pressure ulcer) Neurologic: AAOx3, CN II-XII Intact ICD10 Worksheet Patient Problems: Problems Problem Status Onset Atrial fibrillation Acute Chest pain Acute
--- NOTE | 2018-03-14 14:15 | WOCRNPDOC ---
FERNANDO Advanced Assessment Note - Skin Integrity Problem, Advanced Assess Left First Toe Abrasion Dressing Type: Open to Air Exudate Color: Brown Exudate Characteristic(s): Dried Jacquelyn Wound Tissue: Blanching, Intact Wound Bed Color: Brown Wound Bed Constitution: Scab Wound Edges: Well Defined Site Measurement - Head-to-Toe Length X Width X Depth (cm): 0.7x1.4xscab Skin Integrity Problem Comment: Patient admitted with abrasion to left great toe. Patient states that several times per year, he bumps this toe when getting into his vehicle. This occurrance reportedly took place about 8 weeks ago. Wound bed is dry with an adhered scab. Will implement measures to soften scab. Patient questions answered. [employer] Gentle tubed to patient's floor for use. Wound care will not continue to round.
--- NOTE | 2018-03-14 16:13 | ASMTCMCOM ---
CM Note CM Note Notes: Chart reviewed. Met with patient to discuss discharge plan of care. Currently cared for by his and has household set up to accommodate his physical limitations. They decline need for services at this time but would like information regarding area [facility] services should his be unable to care for him. List provided. Patient is currently undergoing treatment and testing for atrial fib. CM to follow. Date Signed: 03/14/2018 04:11 PM Electronically Signed By:Yu Del Rosario RN
[2018-03-14] MEDS: CYCLOBENZAPRINE 10 MG TAB PO PRN (21:34)
[2018-03-14] MEDS: OXYBUTYNIN 5 MG EXT REL TAB PO SCH (21:34)
[2018-03-14] MEDS: hydrALAZINE 20 MG/ML VIAL IVP PRN (23:44)
[2018-03-15] MEDS: DILTIAZEM 30 MG TAB PO SCH ×4 (02:35→21:47)
[2018-03-15] MEDS: CEFEPIME HCL 1 GM in STERILE WATER INJ 11.3 ML IV SCH (08:27)
--- NOTE | 2018-03-15 11:00 | PDCARPN ---
Cardiology Progress Note Chief Complaint: No active cardiovascular complaints at present Assessment/Plan: Assessment: Patient is a 57 y/o male with history of incomplete quadraplegia and chronic UTIs, who presented to [facility] after reporting chest pains/pressure and shortness of breath. Work up in the ER revealed "new" atrial fibrillation with rapid ventricular response. Echocardiogram with normal left ventricular systolic ejection fraction (52%) and moderate tricuspid regurgitation. Diastolic dysfunction was noted, but the patient was also noted to be in atrial fibrillation. Over the weekend, attempt with MATTI and cardioversion was only briefly successful (third shock reestablished normal sinus rhythm, but this was not sustained. Further information with chronic UTI, which also may contribute to the atrial fibrillation finding. Stress testing with ischaemia noted to the anterior apical region with moderate reduction in systolic function (likely due to atrial fibrillation, and an erroneous calculation). At present, patient is comfortable, but aware of ongoing back spasms and well as bladder spasms. No kassy chest pains or pressure noted. Plan: (1) Would proceed with cardiac angiography to determine if CAD is contributing to the symptoms noted (including the atrial fibrillation) (2) Would continue amiodarone as at present (will convert to oral from IV) (3) Anticoagulation is on hold to facilitate the angiogram (4) Consents have been signed, risks and benefits were discussed (5) Would continue IV antibiotics as at present for the chronic UTI (6) Continue dilatizem for HTN control assistance Subjective: No cardiovascular complaints Reviewed/Discussed With: hospitalist Objective: Vital Signs (8 Hrs) Temp Pulse Resp BP Pulse Ox 03/15/18 10:10 138/97 H 03/15/18 07:40 36.8 C 108 H 17 130/101 H 100 03/15/18 04:00 36.7 C 127 H 18 98/77 L 98 Intake/Output (24 Hrs) 03/14/18 03/15/18 03/16/18 05:59 05:59 05:59 Intake Total 1500 1550 Output Total 1100 5100 Balance 400 -3550 Intake: Oral (ml) 700 1250 IV Intake (ml) 800 IV Infused (ml) 300 Amiodarone HCl 100 ml @ 100 600 mls/hr IV ONCE ONE Rx #:[id number] Amiodarone HCl 200 ml @ 200 33.333 mls/hr IV ONCE ONE Rx#:[id number] Output: Urine (ml) 1100 5100 Catheter 1100 5100 Other: Weight 107.9 kg 107.6 kg Intake Quantity Yes Sufficient Output Comment Catheter per noc shift had bowel stim and bm last 2 noc Number of Stools Catheter 1 Result Diagrams: 03/13/18 03:52 03/13/18 03:52 Telemetry: atrial fib/flutter Echocardiogram: normal LVEF with mod TR - Physical Exam Constitutional: healthy appearing, no apparent distress, obese, No general pain Eyes: PERRL, EOMI Ears, Nose, Mouth, Throat: moist mucous membranes Cardiovascular: no murmurs, no rubs, irregularly irregular, pulses symmetric bilat, No jugular vein distention Peripheral Pulses: 2+: carotid (R), carotid (L) Respiratory: clear to auscultate bilat, no crackles, no wheezes Gastrointestinal: normoactive bowel sounds Genitourinary: suprapubic full/tender Skin: no edema Musculoskeletal: no muscular tenderness Neurologic: AAOx3, CN II-XII grossly intact, paresis Psychiatric: cooperative, interactive, following commands ICD10 Worksheet Patient Problems: Problems Problem Status Onset Atrial fibrillation Acute Chest pain Acute
[2018-03-15] MEDS ORDERED: diphenhydrAMINE 25 MG CAP PO ONE (11:07)
[2018-03-15] MEDS ORDERED: TEMAZEPAM 15 MG CAP PO PRN (11:07)
[2018-03-15] MEDS ORDERED: DIAZEPAM 5 MG TAB PO ONE (11:07)
[2018-03-15] MEDS ORDERED: FAMOTIDINE 20 MG TAB PO ONE (11:07)
[2018-03-15] MEDS ORDERED: ASPIRIN EC 325 MG TAB PO ONE (11:07)
[2018-03-15] MEDS ORDERED: ACETAMINOPHEN 325 MG TAB PO PRN (11:07)
[2018-03-15] MEDS ORDERED: NITROGLYCERIN 0.4 MG BTL SL PRN (11:07)
--- NOTE | 2018-03-15 11:14 | PDPROPOC ---
Sedation Plan of Care Sedation Plan of Care: vital signs stable, mental status noted, patient educated of risks, benefits, alternatives, patient can tolerate sedation ASA Classification: ASA 2 Planned drugs: fentanyl, midazolam Mallampati Score: Class 2 Mallampati Reference Image: Patient passed 3-3-2 rule?: Yes
[2018-03-15] MEDS ORDERED: NS 1,000 ML IV SCH (11:15)
[2018-03-15] MEDS ORDERED: LIDOCAINE 1% 300 MG/30 ML SDV ONE ×2 (11:27→14:02)
[2018-03-15] MEDS ORDERED: MIDAZOLAM 2 MG/2 ML VIAL ONE ×2 (11:28→14:02)
[2018-03-15] MEDS ORDERED: fentaNYL 100 MCG/2 ML INJ ONE ×2 (11:28→14:02)
[2018-03-15] MEDS ORDERED: IOPAMIDOL (ISOVUE-370) 150 ML BTL IV ONE (11:28)
--- NOTE | 2018-03-15 12:18 | ASMTCMCOM ---
CM Note CM Note Notes: 03/15/2018 Case Management Note Met pt during rounds this morning. Pt is recommending home as he is at his baseline. Possible d/c needs may be IV antibiotics. Case Management will follow. Case Management d/c poc: anticipating home possibly with the need for infusion company and home health. Date Signed: 03/15/2018 12:18 PM Electronically Signed By:Kortney Smith RN
[2018-03-15] MEDS ORDERED: ASPIRIN 325 MG TAB ONE (12:27)
[2018-03-15] MEDS ORDERED: IOPAMIDOL (ISOVUE-300) 50 ML VIAL ONE (14:02)
[2018-03-15] MEDS ORDERED: LIDO/EPI 1% **for epidural** 30 ML SDV ONE (14:02)
[2018-03-15] MEDS ORDERED: AMIODARONE A.FIB-18HR INFSN (ORDER 3/3) IV ONE (14:30)
--- NOTE | 2018-03-15 15:16 | HOSPPROG ---
Hospitalist Progress Note Assessment/Plan: #New atrial fibrillation with RVR -infection vs. ischemia. Nuclear stress abnormal, no CAD on cath today -back into a fib after cardioversion. Cont diltiazem and amiodarone. Cont treatment dose Lovenox; will need oral AC at discharge. #Chest pain: abnormal stress, but no CAD on cath #Paraplegia: Baclofen for spasms #Recurrent UTI: chronic indwelling munoz. Spoke with Dr. Fonseca. Culture shows Carbapenem-R Pseudomonas, but afebrile without fever and leukocytosis. Will stop abx #Acute decompensated diastolic HF: improved with gentle diuresis #Left great toe pressure injury: present at admission. Wound care #Diet: regular #DVT ppx: Lovenox #Disp: cont inpatient admission for further cardiac testing, telemetry Subjective: chest pressure this morning. No dizziness Objective: Vital Signs Temp Pulse Resp BP Pulse Ox 36.8 C 128 H 18 117/94 H 96 03/15/18 07:40 03/15/18 11:50 03/15/18 11:50 03/15/18 11:50 03/15/18 11:50 Microbiology 03/11/18 20:00 Urine Culture - Final Urine,Clean Catch Ps. Aeruginosa Carbapenem "R" Laboratory Results 03/13/18 03:52 03/13/18 03:52 03/14/18 03/15/18 03/16/18 05:59 05:59 05:59 Intake Total 1500 1550 250 Output Total 1100 5100 Balance 400 -3550 250 PT 14.8 SEC (12.0-15.0) 03/12/18 03:46 INR 1.14 (0.83-1.16) 03/12/18 03:46 - Time Spent With Patient Time Spent with Patient: greater than 35 minutes Time Spent with Patient: Greater than 35 minutes spent on this patients care, greater than 50% of time spent counseling, educating, and coordinating care regarding the above mentioned plan. - Physical Exam Constitutional: no apparent distress, obese Eyes: PERRL Ears, Nose, Mouth, Throat: moist mucous membranes Cardiovascular: irregularly irregular, tachycardia Respiratory: no respiratory distress, no rales or rhonchi Gastrointestinal: normoactive bowel sounds Genitourinary: other (chronic suprapubic cathteter) Skin: warm, other (chronic venous stasis changes with mild erythema. No purulence) Neurologic: AAOx3, CN II-XII Intact Psychiatric: interacting appropriately ICD10 Worksheet Patient Problems: Problems Problem Status Onset Atrial fibrillation Acute Chest pain Acute
--- NOTE | 2018-03-15 15:45 | PDDXCAT ---
Diagnostic Cath Note - . Date: 03/15/18 [employer] Commanding Officer: Lesli Indication: High-risk criteria on noninvasive testing (choose option below) High-risk criteria on non-invasive testing: stress-induced moderate-size multiple perfusion defects - Procedure Access: right groin Procedure: left heart catheterization, coronary angiography, left ventriculogram - Materials Left Heart Cath size: 6F Left Heart Cath materials: standard multipack (JL4, JR4, pigtail) - Findings-Left Heart Catheterization LM: Medium to large diameter vessel with trifurcation into the LAD, LCX, and ramus vessels. No luminal irregularities were noted. LAD: Medium diameter vessel with a principal diagonal. No luminal irregularites were noted. Mid to distal tortuosity is appreciated. LCX: Medium diameter vessel with a principal obtuse marginal. No luminal irregularities were noted. RCA: Large diameter vessel with supply to the PDA (dominant vessel). No luminal irregularities were noted. Ramus: Large diameter vessel without luminal irregularities appreciated. EDP: 10 mm Hg LVEF: 65% Wall motion: normal wall motion Complications: none Estimated blood loss: <50ml Closure method: Angioseal Assessment: Patient is a 57 y/o male with abnormal MPI (small reversible perfusion defect) with no critical CAD noted. Normal LVEF was also appreciated by left ventriculogram. Would continue amiodarone for rate/rhythm control assistance. Aggressive UTI therapy is needed prior to reattempting cardioversion (as the infection may be driving the arrhythmia). Plan: Continue Amiodarone (will convert to PO tomorrow given IV therapy was continued , and we wish to not waste that which has been started) as well as Eliquis for CVA prophylaxis. Consider ID consultation for further assessment of both antibiotic and delivery mechanism (? bladder infusions, as was the case for the patient in the past). Intervention: none Patient Problems: Problems Problem Status Onset Atrial fibrillation Acute Chest pain Acute
[2018-03-15] MEDS: ENOXAPARIN 100 MG/ML SYR SC SCH ×3 (16:14→21:47)
[2018-03-15] MEDS ORDERED: BACLOFEN 10 MG TAB PO PRN (16:30)
[2018-03-15] MEDS: OXYBUTYNIN 5 MG EXT REL TAB PO SCH (21:47)
[2018-03-15] MEDS: CYCLOBENZAPRINE 10 MG TAB PO PRN (21:47)
[2018-03-16] MEDS: DILTIAZEM 30 MG TAB PO SCH ×4 (02:54→19:47)
[2018-03-16] MEDS ORDERED: POTASSIUM CL 20 MEQ TAB PO ONE (08:21)
[2018-03-16] MEDS: ENOXAPARIN 100 MG/ML SYR SC SCH ×2 (10:43→21:20)
--- NOTE | 2018-03-16 15:09 | HOSPPROG ---
Hospitalist Progress Note Assessment/Plan: #New atrial fibrillation with RVR: unsuccessful to cardioversion -Normal cardiac cath. -Dilt, s/p Amio gtt. Now on orals. Lovenox. I explained options for AC and he will check what is covered by insurance #Paraplegia: Baclofen for spasms #Mild pyuria: culture with Carbapenem-resistant Pseudomonas. Given that afebrile , without fever will not treat. He was on suppressive LQ and now becoming very abx-resistant. Will observe off abx while here. I discussed case with Infectious Disease and they agree with plan to prevent further abx resistance -stop suppressive abx at home #Acute decompensated systolic/diastolic HR: on echo, likely from a fib. LV normal on cath. Sxs resolved with gentle diuresis #Left great toe pressure injury: present at admission. Wound care #Diet: regular #DVT ppx: Lovenox #Disp: cont inpatient admission for further cardiac testing, telemetry. will DC home with family when medically stable Subjective: intermittent chest pressure. No fever, chills or sweats Objective: Vital Signs Temp Pulse Resp BP Pulse Ox 36.8 C 154 H 16 137/99 H 100 03/16/18 13:47 03/16/18 13:47 03/16/18 13:47 03/16/18 13:47 03/16/18 13:47 Laboratory Results 03/13/18 03:52 03/16/18 03:35 03/15/18 03/16/18 03/17/18 05:59 05:59 05:59 Intake Total 1550 800 720 Output Total 5100 1300 1350 Balance -3550 -500 -630 PT 14.8 SEC (12.0-15.0) 03/12/18 03:46 INR 1.14 (0.83-1.16) 03/12/18 03:46 - Time Spent With Patient Time Spent with Patient: greater than 35 minutes Time Spent with Patient: Greater than 35 minutes spent on this patients care, greater than 50% of time spent counseling, educating, and coordinating care regarding the above mentioned plan. ICD10 Worksheet Patient Problems: Problems Problem Status Onset Atrial fibrillation Acute Chest pain Acute
[2018-03-16] MEDS ORDERED: DIGOXIN 250 MCG TAB PO ONE (15:23)
--- NOTE | 2018-03-16 15:49 | ASMTCMCOM ---
CM Note CM Note Notes: 03/16/2018 Case Management Note Reviewed pt during mutli disciplinary rounds this morning. There are no case management d/c needs. Pt will not require IV abx at d/c and is near his baseline from PT adn OT perspective. Case Management d/c poc: return home with family support. Case Management to follow. Date Signed: 03/16/2018 03:49 PM Electronically Signed By:Kortney Smith RN
--- NOTE | 2018-03-16 16:36 | PDCARPN ---
Cardiology Progress Note Chief Complaint: No cardiovascular complaints today. Ongoing elevation to heart rate noted. Assessment/Plan: Assessment: 03-16-18 No cardiovascular complaints voiced today. Angiography yesterday without critical CAD noted. Ongoing atrial fibrillation with rapid ventricular response noted. Patient has been on Amiodarone (oral therapy started today). No chest pains or pressure. No PND or orthopnea. Sleep overnight was good. 03-15-18 Patient is a 57 y/o male with history of incomplete quadraplegia and chronic UTIs, who presented to [facility] after reporting chest pains/pressure and shortness of breath. Work up in the ER revealed "new" atrial fibrillation with rapid ventricular response. Echocardiogram with normal left ventricular systolic ejection fraction (52%) and moderate tricuspid regurgitation. Diastolic dysfunction was noted, but the patient was also noted to be in atrial fibrillation. Over the weekend, attempt with MATTI and cardioversion was only briefly successful (third shock reestablished normal sinus rhythm, but this was not sustained. Further information with chronic UTI, which also may contribute to the atrial fibrillation finding. Stress testing with ischaemia noted to the anterior apical region with moderate reduction in systolic function (likely due to atrial fibrillation, and an erroneous calculation). At present, patient is comfortable, but aware of ongoing back spasms and well as bladder spasms. No kassy chest pains or pressure noted. Plan: (1) Continue amiodarone (2) Given continued elevation in heart rate, would trial the patient on digoxin today (3) NPO after midnight tonight for reattempt with cardioversion tomorrow (4) Would continue lovenox for CVA prophylaxis (5) Patient was in agreement with these plans. Subjective: No cardiovascular complaints today Reviewed/Discussed With: hospitalist Objective: Vital Signs (8 Hrs) Temp Pulse Resp BP Pulse Ox 03/16/18 15:41 152 H 03/16/18 13:47 36.8 C 154 H 16 137/99 H 100 Intake/Output (24 Hrs) 03/15/18 03/16/18 03/17/18 05:59 05:59 05:59 Intake Total 1550 800 720 Output Total 5100 1300 1350 Balance -9822 -022 -217 Intake: Oral (ml) 1250 650 720 IV Intake (ml) 150 IV Infused (ml) 300 Amiodarone HCl 100 ml @ 100 600 mls/hr IV ONCE ONE Rx #:[id number] Amiodarone HCl 200 ml @ 200 33.333 mls/hr IV ONCE ONE Rx#:[id number] Output: Urine (ml) 5100 1300 1350 Catheter 5100 1300 1350 Other: Weight 107.6 kg Intake Quantity Yes Sufficient Output Comment Catheter per noc shift had bowel stim and bm last 2 noc Number of Stools Catheter 1 1 Result Diagrams: 03/13/18 03:52 03/16/18 03:35 Telemetry: atrial fibrillation with RVR - Physical Exam Constitutional: WDWN, healthy appearing Eyes: PERRL Ears, Nose, Mouth, Throat: moist mucous membranes Cardiovascular: irregularly irregular (tachycardia), pulses symmetric bilat, No jugular vein distention Peripheral Pulses: 3+: carotid (R), carotid (L) Respiratory: clear to auscultate bilat, no crackles Genitourinary: suprapubic full/tender Skin: no edema Musculoskeletal: no muscular tenderness Neurologic: AAOx3, CN II-XII grossly intact, paresis Psychiatric: cooperative, interactive, following commands ICD10 Worksheet Patient Problems: Problems Problem Status Onset Atrial fibrillation Acute Chest pain Acute
[2018-03-16] MEDS: CYCLOBENZAPRINE 10 MG TAB PO PRN (21:20)
[2018-03-16] MEDS: AMIODARONE HCL 200 MG TAB PO SCH (21:20)
[2018-03-16] MEDS: OXYBUTYNIN 5 MG EXT REL TAB PO SCH (21:20)
[2018-03-17] MEDS: DILTIAZEM 30 MG TAB PO SCH ×4 (02:25→21:12)
[2018-03-17] MEDS: AMIODARONE HCL 200 MG TAB PO SCH ×2 (09:32→21:24)
[2018-03-17] MEDS: ENOXAPARIN 100 MG/ML SYR SC SCH ×2 (09:32→21:12)
[2018-03-17] MEDS ORDERED: NS 1,000 ML IV SCH (10:00)
[2018-03-17] MEDS ORDERED: ATROPINE SULFATE 1 MG/10 ML SYR IVP ONE (10:04)
[2018-03-17] MEDS ORDERED: NS 1,000 ML IV ONE (10:11)
[2018-03-17] MEDS: amLODIPine BESYLATE 5 MG TAB PO SCH (10:41)
--- NOTE | 2018-03-17 12:25 | ASMTCMCOM ---
CM Note CM Note Notes: 03/17/2018 Case Management Note Met w/pt today. Pt to have cardioversion today. Pt did not identify any case management d/c needs. Case Management d/c poc: home with family support for cares. Case Management available if needs change. Date Signed: 03/17/2018 12:25 PM Electronically Signed By:Kortney Smith RN
[2018-03-17] MEDS ORDERED: ATROPINE SULFATE 1 MG/10 ML SYR ONE (13:38)
--- NOTE | 2018-03-17 13:42 | CPEKG ---
Heart Rate: 132 RR Interval: 455 QRSD Interval: 68 QT Interval: 308 QTC Interval: 457 QRS Firth: 58 EKG Severity - ABNORMAL ECG - EKG Impression: ATRIAL FIBRILLATION, V-RATE 90-167 EKG Impression: ATRIAL FIBRILLATION IS NEW IN COMPARISON TO PRIOR Electronically Signed By: Patrice Ballesteros 17-Mar-2018 22:33:00
--- NOTE | 2018-03-17 14:00 | PDCARPN ---
Cardiology Progress Note Chief Complaint: Mild chest tightness has been noted today. Ongoing atrial fibrillation with rapid ventricular response noted Assessment/Plan: Assessment: 03-17-18 Ongoing atrial fibrillation noted on monitor. Ongoing use of Amiodarone as well as trial overnight with Digoxin (some rate control reduction was noted, but not consistently). Mild chest tightness is noted today. Angiography without critical CAD noted. was present with the patient in the CVC today. Plans, as of yesterday, were to revisit MATTI (there were a few day off therapy for the angiogram) and possible cardioversion. 03-16-18 No cardiovascular complaints voiced today. Angiography yesterday without critical CAD noted. Ongoing atrial fibrillation with rapid ventricular response noted. Patient has been on Amiodarone (oral therapy started today). No chest pains or pressure. No PND or orthopnea. Sleep overnight was good. 03-15-18 Patient is a 57 y/o male with history of incomplete quadraplegia and chronic UTIs, who presented to [facility] after reporting chest pains/pressure and shortness of breath. Work up in the ER revealed "new" atrial fibrillation with rapid ventricular response. Echocardiogram with normal left ventricular systolic ejection fraction (52%) and moderate tricuspid regurgitation. Diastolic dysfunction was noted, but the patient was also noted to be in atrial fibrillation. Over the weekend, attempt with MATTI and cardioversion was only briefly successful (third shock reestablished normal sinus rhythm, but this was not sustained. Further information with chronic UTI, which also may contribute to the atrial fibrillation finding. Stress testing with ischaemia noted to the anterior apical region with moderate reduction in systolic function (likely due to atrial fibrillation, and an erroneous calculation). At present, patient is comfortable, but aware of ongoing back spasms and well as bladder spasms. No kassy chest pains or pressure noted. Plan: (1) MATTI to reassess for thrombus (2) Cardioversion if no thrombus noted (3) Continue Amiodarone as at present (currently oral) (4) Would continue lovenox, but given need for longer term anticoagulation, would consider NOAC therapy (Eliquis) (5) Further recommendations after testing has been completed. Subjective: patient doing well at present Reviewed/Discussed With: family, hospitalist Objective: Vital Signs (8 Hrs) Temp Pulse Resp BP Pulse Ox 03/17/18 11:56 37.2 C 152 H 15 146/108 H 97 03/17/18 09:46 36.8 C 157 H 22 H 166/125 H 95 Intake/Output (24 Hrs) 03/16/18 03/17/18 03/18/18 05:59 05:59 05:59 Intake Total 800 3720 Output Total 1300 3700 Balance -500 20 Intake: Oral (ml) 650 3420 IV Intake (ml) 150 300 Output: Urine (ml) 1300 3700 Catheter 1300 3700 Other: Weight 103.8 kg Intake Quantity Yes Sufficient Number of Voids Bedside Commode 1 Number of Stools Bedside Commode 1 Catheter 1 Result Diagrams: 03/13/18 03:52 03/17/18 04:05 Telemetry: atrial fibrillation with rapid ventricular response - Physical Exam Constitutional: WDWN, healthy appearing, no apparent distress Eyes: PERRL, EOMI Ears, Nose, Mouth, Throat: moist mucous membranes Cardiovascular: no murmurs, no rubs, irregularly irregular Peripheral Pulses: 2+: carotid (R), carotid (L) Respiratory: clear to auscultate bilat, no crackles Gastrointestinal: normoactive bowel sounds Skin: no edema Musculoskeletal: no muscular tenderness Neurologic: AAOx3, CN II-XII grossly intact, paresis Psychiatric: cooperative, interactive, following commands ICD10 Worksheet Patient Problems: Problems Problem Status Onset Atrial fibrillation Acute Chest pain Acute
[2018-03-17] MEDS ORDERED: SUCCINYLCHOLINE CHLORIDE 200 MG/10 ML SYR IVP ONE (14:38)
[2018-03-17] MEDS ORDERED: PROPOFOL 200 MG/20 ML VIAL ONE (14:38)
[2018-03-17] MEDS ORDERED: LIDOCAINE 2% 100 MG/5 ML SYR ONE (14:38)
--- NOTE | 2018-03-17 15:00 | PDANEPAE ---
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 remote history of autonomic dysreflexia - Endocrine History Hx Diabetes: No Hypothyroid: No Hyperthyroid: No - Renal History Hx Renal Disorders: Yes Renal History Comment: suprapubic catheter, recurrent UTIs - Liver History Hx Hepatic Disorders: No - Neurological & Psychiatric Hx Hx Neurological and Psychiatric Disorders: No - Chronic Pain History Chronic Pain: Yes ANE Review of Systems Review of Systems: - Exercise capacity Exercise capacity: limited by disability ANE Patient History - Allergies Allergies/Adverse Reactions: Sulfa (Sulfonamide Antibiotics) Allergy (Verified 03/11/18 20:01) Hives - Home Medications Home medications: home medication list seen and reviewed Home Medications: Cyclobenzaprine [Flexeril 10 MG (*)] 10 mg PO HS 03/11/18 [Last Taken 03/10/18] Herbals/Supplements -Info Only 1 ea PO DAILY 03/11/18 [Last Taken 03/11/18] Ibuprofen [Motrin (*)] 800 mg PO BID 03/11/18 [Last Taken 03/11/18] Oxybutynin Chloride [Oxybutynin Chloride Er] 5 mg PO HS 03/11/18 [Last Taken ] levOFLOXACIN [levAQUIN (*)] 250 mg PO DAILY 03/11/18 [Last Taken 03/11/18] - Anes Hx Anes Hx: no prior problems - Smoking Hx Smoking Status: Never smoked Marijuana use: No - Alcohol Use Alcohol Use: Occasionally (Once monthly) ANE Labs/Vital Signs - Labs Result Diagrams: 03/13/18 03:52 03/17/18 04:05 - Vital Signs Blood Pressure: 146/108 Heart Rate: 152 Respiratory Rate: 15 O2 Sat (%): 97 Height: 185.42 cm Weight: 103.8 kg ANE Physical Exam - Airway Mallampati Score: Class 2 Mouth exam: normal dental/mouth exam - Pulmonary Pulmonary: no respiratory distress - Cardiovascular Cardiovascular: regular rate and rhythym - ASA Status ASA Status: II ANE Anesthesia Plan Anesthesia Plan: GA with mask Total IV Anesthesia: Yes
--- NOTE | 2018-03-17 15:01 | POSTANESTH ---
Post Anesthetic Evaluation Cardiovascular Status: Normal, Stable Respiratory Status: Normal, Stable Level of Consciousness/Mental Status: Can Participate in Eval Pain Control: Adequate, Prn Tx Ordered Nausea/Vomiting Control: Adequate, Prn Tx Ordered Complications Possibly Related to Anesthesia: None Noted
--- NOTE | 2018-03-17 15:05 | PDTEE1 ---
MATTI Cardioversion Procedure Procedure: electrical cardioversion, transesophageal echo Indications: atrial fibrillation Consent: signed and in chart Anticoagulation: lovenox Procedural Details: After consent for procedures (sedation, MATTI, and possible cardioversion) were obtained, the patient was sedated and vitals (blood pressure, heart rate, oxygen ) were all monitored. After sedation was achieved, the MATTI probe was placed and standard views were obtained. Preliminary MATTI mild reduction in LVEF was noted (40-45%) Trace AI Mild MR no thrombus to the CHULA mild biatrial dilation was noted Grossly normal TV and PV Given a lack of thrombus, sedation was reassessed, and given moderate sedation maintained, a single, synchronized shock was performed (200J) Atrial fibrillation at rate of 130 bpm dropped to normal sinus rhythm at 60 bpm After about one minute, however, atrial fibrillation at 130 bpm returned. A second shock, also 200J (sync) was performed which once again resulted in normal sinus rhythm. After 30sec to 1 min, atrial flutter was noted (variable conduction 120-130 bpm) We were prepping for a third shock when the patient spontaneously converted from atrial flutter to normal sinus rhythm (60 bpm) on his own. This rhythm, at present (about 10 minutes post) has continued to be noted. I spoke with his about the procedure and the arrhythmias noted. Would continue therapy on amiodarone as at present Lovenox should be converted over to NOAC therapy for more consistent dosing and CVA risk reduction for a minimum of 30 days Patient recovered without complications appreciated. Synchronized cardioversion attempt #1: 200J Synchronized cardioversion attempt #2: 200J Results: normal sinus rhythm Conclusions: successful MATTI cardioversion Patient Problems: Problems Problem Status Onset Atrial fibrillation Acute Chest pain Acute
--- NOTE | 2018-03-17 15:08 | HOSPPROG ---
Hospitalist Progress Note Assessment/Plan: #Atrial fibrillation with RVR: resistant to treatment. No CAD on cath. s/p cardioversion without success. -Has been bolused IV amio, dilt. Now on PO amio -repeat cardioversion today. Cont treatment dose Lovenox; will need oral AC at discharge. He is checking with insurance for coverage options #Chest pain: due to tachycardia. 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 Don't think true infection now since afebrile and no leukocytosis. Will stop abx and monitor since at risk for further resistance #Acute decompensated diastolic HF: improved with gentle diuresis #Left great toe pressure injury: present at admission. Wound care #HTN: persistent, add Norvasc #Diet: regular #DVT ppx: Lovenox #Disp: cont inpatient admission for further cardiac testing, telemetry. Explained plan to pt and Subjective: intermittent chest pressure. Body spasms have improved Objective: Vital Signs Temp Pulse Resp BP Pulse Ox 37.2 C 152 H 15 146/108 H 97 03/17/18 11:56 03/17/18 15:00 03/17/18 15:00 03/17/18 15:00 03/17/18 15:00 Laboratory Results 03/13/18 03:52 03/17/18 04:05 03/16/18 03/17/18 03/18/18 05:59 05:59 05:59 Intake Total 800 3720 Output Total 1300 3700 Balance -500 20 PT 14.8 SEC (12.0-15.0) 03/12/18 03:46 INR 1.14 (0.83-1.16) 03/12/18 03:46 - Time Spent With Patient Time Spent with Patient: greater than 35 minutes Time Spent with Patient: Greater than 35 minutes spent on this patients care, greater than 50% of time spent counseling, educating, and coordinating care regarding the above mentioned plan. - Physical Exam Constitutional: no apparent distress Eyes: PERRL Ears, Nose, Mouth, Throat: moist mucous membranes, hearing normal Cardiovascular: irregularly irregular, tachycardia Respiratory: no respiratory distress Gastrointestinal: normoactive bowel sounds, soft, non-tender abdomen Genitourinary: other (suprapubic catheter in place) Skin: warm, other (left great toe ulcer with no purulence. Chronic venous skin changes over shins, brown discoloration. Mild redness (chronic per him), no warmth or open lesions) Neurologic: AAOx3, CN II-XII Intact Psychiatric: interacting appropriately ICD10 Worksheet Patient Problems: Problems Problem Status Onset Atrial fibrillation Acute Chest pain Acute
--- NOTE | 2018-03-17 15:16 | ECHO ---
[email or web address] [place] [id number] Main: [phone] Fax: Transesophageal Echocardiography Name: WILBER SANTOS MR#: [id number] Study Date: 03/17/2018 Study Time: 01:58 PM Date of : 1960 Age: 57 year(s) Height: ( ) Weight: ( ) BSA: Gender: Male Examination: Indication: Image Quality: Contrast: Requested by: Yaneth Adames Heart Rate: Rhythm: BP: / Procedure Staff Precise Winder: Reading Physician: Patrice Ballesteros MD Requesting Provider: Conclusions: Mild reduction in LVEF (40-45%) No thrombus to the CHULA (+) smoke in the atria mild MR Trace AI Mild biatrial dilation noted . Proceed with cardioversion Measurements: Chambers Valvular Assessment AV/MV Valvular Assessment TV/PV Normal Normal Normal Name Value Range Name Value Range Name Value Range Additional Measurements: Findings: l1n (No Signature Object) Patient: WILBER SANTOS Study Date: 03/17/2018 Page 1 of 1 01:58 PM [id number]
[2018-03-17] MEDS: OXYBUTYNIN 5 MG EXT REL TAB PO SCH (21:13)
[2018-03-18] MEDS: DILTIAZEM 30 MG TAB PO SCH ×4 (03:06→20:58)
[2018-03-18] MEDS: AMIODARONE HCL 200 MG TAB PO SCH ×2 (10:08→20:58)
[2018-03-18] MEDS: ENOXAPARIN 100 MG/ML SYR SC SCH (10:11)
[2018-03-18] MEDS: hydrALAZINE 20 MG/ML VIAL IVP PRN (10:15)
[2018-03-18] MEDS: amLODIPine BESYLATE 5 MG TAB PO SCH (10:49)
--- NOTE | 2018-03-18 11:44 | HOSPPROG ---
Hospitalist Progress Note Assessment/Plan: # a-fib with RVR self-converted during cardioversion yesterday- some mild bradycardia today - cont amiodarone, dilt per cards - start eliquis, stop lovenox today # chest pain - likely d/t a-fib; cath without obstructive disease # carbapenem resistant PSA in urine - check CBC, procalcitonin - ID consult to help with true infection vs colonization # paraplegia - baclofen # acute sCHF - improved with lasix # L great toe pressure injury - wound care # htn - elevated today, received hydralazine - cont dilt Subjective: feels slightly shaky today Objective: Vital Signs Temp Pulse Resp BP Pulse Ox 36.6 C 73 18 132/81 H 94 03/18/18 11:26 03/18/18 11:26 03/18/18 11:26 03/18/18 11:26 03/18/18 11:26 Laboratory Results 03/13/18 03:52 03/17/18 04:05 03/17/18 03/18/18 03/19/18 05:59 05:59 05:59 Intake Total 3720 850 550 Output Total 3700 850 800 Balance 20 0 -250 PT 14.8 SEC (12.0-15.0) 03/12/18 03:46 INR 1.14 (0.83-1.16) 03/12/18 03:46 chart reviewed procedure notes reviewed echo reviewed - Physical Exam Constitutional: appears nourished, not in pain Cardiovascular: regular rate and rhythym, no murmur, rub, or gallop Respiratory: no respiratory distress, no rales or rhonchi, clear to auscultation Gastrointestinal: normoactive bowel sounds, soft, non-tender abdomen, no palpable masses, other (suprapubic catheter, no erythema) ICD10 Worksheet Patient Problems: Problems Problem Status Onset Atrial fibrillation Acute Chest pain Acute
--- NOTE | 2018-03-18 15:01 | SOAPPROG ---
SOAP Progress Note Assessment/Plan: Assessment/Plan: This is a 57 yr old with AF, ?bladder infestation. who is now in SR with Amiodarone. AF: On amiodarone, continue ELiquis. No Lovenox HTN: Lisinopril 5mg po qd. 03/18/18 14:58 Subjective: pt is doing well. SR is maintained. Objective: Vital Signs Temp Pulse Resp BP Pulse Ox 36.6 C 73 18 132/81 H 94 03/18/18 11:26 03/18/18 11:26 03/18/18 11:26 03/18/18 11:26 03/18/18 11:26 Laboratory Results 03/13/18 03:52 03/17/18 04:05 03/17/18 03/18/18 03/19/18 05:59 05:59 05:59 Intake Total 3720 850 1050 Output Total 3700 850 800 Balance 20 0 250 PT 14.8 SEC (12.0-15.0) 03/12/18 03:46 INR 1.14 (0.83-1.16) 03/12/18 03:46 Physical Exam - Physical Exam General Appearance: alert, no apparent distress EENT: PERRL/EOMI, pharynx normal Neck: non-tender, supple Respiratory: lungs clear, normal breath sounds Cardiac/Chest: regular rate, rhythm, No edema ICD10 Worksheet Patient Problems: Problems Problem Status Onset Atrial fibrillation Acute Chest pain Acute
[2018-03-18] MEDS ORDERED: amLODIPine BESYLATE 5 MG TAB PO SCH (15:15)
--- NOTE | 2018-03-18 15:17 | CPEKG ---
Heart Rate: 71 RR Interval: 845 P-R Interval: 164 QRSD Interval: 78 QT Interval: 420 QTC Interval: 457 P Crumpton: 59 QRS Crumpton: 55 T Wave Crumpton: 79 EKG Severity - BORDERLINE ECG - EKG Impression: SINUS RHYTHM EKG Impression: PROBABLE LEFT ATRIAL ABNORMALITY Electronically Signed By: [place] Carrasco 18-Mar-2018 17:29:04
[2018-03-18 17:38] LABS: PLATELET COUNT 182 10^3/uL (150-400)
[2018-03-18] MEDS: LISINOPRIL 5 MG TAB PO SCH (18:41)
[2018-03-18] MEDS: APIXABAN 5 MG TAB PO SCH (20:57)
[2018-03-18] MEDS: OXYBUTYNIN 5 MG EXT REL TAB PO SCH (20:57)
[2018-03-19] MEDS: DILTIAZEM 30 MG TAB PO SCH ×4 (01:30→20:30)
[2018-03-19] MEDS: AMIODARONE HCL 200 MG TAB PO SCH ×2 (08:11→20:30)
[2018-03-19] MEDS: APIXABAN 5 MG TAB PO SCH ×2 (08:11→20:30)
[2018-03-19] MEDS: LISINOPRIL 5 MG TAB PO SCH ×2 (11:15→13:51)
--- NOTE | 2018-03-19 12:42 | PDCARPN ---
Cardiology Progress Note Chief Complaint: Patient doing well today. No cardiovascular complaints. Assessment/Plan: Assessment: 03-19-18 Patient was seen by my partner, Dr. Charles Linton, yesterday. Overnight, the patient returned to atrial flutter (rates are controlled at present). Eliquis therapy started. Amiodarone continues. Would attempt single dose of digoxin again today (this was successful with some reduction of heart rates earlier in the week. Would not at this time pursue another cardioversion (first was not successful, and second led to some cessation in the previously noted atrial arrhythmias. Patient doing well today. No cardiovascular complaints. 03-17-18 Ongoing atrial fibrillation noted on monitor. Ongoing use of Amiodarone as well as trial overnight with Digoxin (some rate control reduction was noted, but not consistently). Mild chest tightness is noted today. Angiography without critical CAD noted. was present with the patient in the CVC today. Plans, as of yesterday, were to revisit MATTI (there were a few day off therapy for the angiogram) and possible cardioversion. 03-16-18 No cardiovascular complaints voiced today. Angiography yesterday without critical CAD noted. Ongoing atrial fibrillation with rapid ventricular response noted. Patient has been on Amiodarone (oral therapy started today). No chest pains or pressure. No PND or orthopnea. Sleep overnight was good. 03-15-18 Patient is a 57 y/o male with history of incomplete quadraplegia and chronic UTIs, who presented to [facility] after reporting chest pains/pressure and shortness of breath. Work up in the ER revealed "new" atrial fibrillation with rapid ventricular response. Echocardiogram with normal left ventricular systolic ejection fraction (52%) and moderate tricuspid regurgitation. Diastolic dysfunction was noted, but the patient was also noted to be in atrial fibrillation. Over the weekend, attempt with MATTI and cardioversion was only briefly successful (third shock reestablished normal sinus rhythm, but this was not sustained. Further information with chronic UTI, which also may contribute to the atrial fibrillation finding. Stress testing with ischaemia noted to the anterior apical region with moderate reduction in systolic function (likely due to atrial fibrillation, and an erroneous calculation). At present, patient is comfortable, but aware of ongoing back spasms and well as bladder spasms. No kassy chest pains or pressure noted. Plan: (1) Would continue Amiodarone for some degree of rate/rhythm control (2) Eliquis should continue for CVA prophylaxis (3) Would continue cardizem for both HTN and rate control assistance (4) Zestril should continue for HTN control assistance (5) Ambulation of the patient Subjective: No cardiovascular complaints Reviewed/Discussed With: hospitalist Objective: Vital Signs (8 Hrs) Temp Pulse Resp BP Pulse Ox 03/19/18 09:45 130 H 107/83 H 03/19/18 08:07 36.6 C 102 H 19 126/94 H 98 Intake/Output (24 Hrs) 03/18/18 03/19/18 03/20/18 05:59 05:59 05:59 Intake Total 850 3550 Output Total 850 4050 Balance 0 -500 Intake: Oral (ml) 850 3550 Output: Urine (ml) 850 4050 Catheter 850 4050 Other: Weight 105 kg 104.9 kg Intake Quantity Yes Sufficient Result Diagrams: 03/18/18 17:30 03/17/18 04:05 Telemetry: atrial flutter with rates of 100-105 bpm - Physical Exam Constitutional: WDWN, healthy appearing, no apparent distress Eyes: PERRL, EOMI Cardiovascular: irregularly irregular, pulses symmetric bilat, No jugular vein distention Peripheral Pulses: 2+: carotid (R), carotid (L) Respiratory: clear to auscultate bilat Skin: no edema Musculoskeletal: no muscular tenderness Neurologic: AAOx3, CN II-XII grossly intact, paresis Psychiatric: cooperative, interactive ICD10 Worksheet Patient Problems: Problems Problem Status Onset Atrial fibrillation Acute Chest pain Acute
--- NOTE | 2018-03-19 12:48 | ASMTCMCOM ---
CM Note CM Note Notes: Pts case discussed in morning rounds. The plan remains the same. Pt will d/c independent with supportive family when medically stable. Pt was in afib last night. CM available for changes. Plan: Independent Date Signed: 03/19/2018 12:47 PM Electronically Signed By:RODNEY Saxena
[2018-03-19] MEDS ORDERED: DIGOXIN 125 MCG TAB PO ONE (14:34)
--- NOTE | 2018-03-19 14:38 | HOSPPROG ---
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 - discussed with Dr Fonseca - represents colonization # paraplegia - baclofen # acute sCHF - improved with lasix # L great toe pressure injury - wound care # htn - very labile; will place hold params on lisinopril - cont dilt Subjective: back in a-fib; feels some spasms Objective: Vital Signs Temp Pulse Resp BP Pulse Ox 36.4 C 109 H 18 120/98 H 100 03/19/18 12:00 03/19/18 12:00 03/19/18 12:00 03/19/18 13:25 03/19/18 12:00 Laboratory Results 03/18/18 17:30 03/17/18 04:05 03/18/18 03/19/18 03/20/18 05:59 05:59 05:59 Intake Total 850 3550 Output Total 850 4050 Balance 0 -500 PT 14.8 SEC (12.0-15.0) 03/12/18 03:46 INR 1.14 (0.83-1.16) 03/12/18 03:46 tele personally reviewed discussed with Dr Ballesteros - Physical Exam Constitutional: no apparent distress, appears nourished Cardiovascular: no murmur, rub, or gallop, irregularly irregular Respiratory: no respiratory distress, no rales or rhonchi, clear to auscultation Gastrointestinal: normoactive bowel sounds, soft, non-tender abdomen, no palpable masses ICD10 Worksheet Patient Problems: Problems Problem Status Onset Atrial fibrillation Acute Chest pain Acute
[2018-03-19] MEDS ORDERED: BISACODYL 10 MG SUPP PR PRN (20:19)
[2018-03-19] MEDS: OXYBUTYNIN 5 MG EXT REL TAB PO SCH (20:30)
[2018-03-19] MEDS: CYCLOBENZAPRINE 10 MG TAB PO PRN (20:30)
[2018-03-20] MEDS: DILTIAZEM 30 MG TAB PO SCH ×2 (02:48→08:34)
[2018-03-20 08:08] VITALS: BP 135/83
[2018-03-20] MEDS: APIXABAN 5 MG TAB PO SCH (08:34)
[2018-03-20] MEDS: AMIODARONE HCL 200 MG TAB PO SCH (08:34)
[2018-03-20] MEDS: LISINOPRIL 5 MG TAB PO SCH (08:34)
--- NOTE | 2018-03-20 10:17 | GDS ---
[f rep st] DISCHARGE SUMMARY FINAL DIAGNOSIS: 1. Atrial fibrillation with rapid ventricular response. 2. Chest tightness. 3. 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 4. Chronic indwelling suprapubic catheter. 5. History of multiple resistant organisms in his urine with a carbapenem resistant Pseudomonas cult ured here. 6. Left great toe pressure injury. 7. Hypertension. HOSPITAL COURSE: 1. Atrial fibrillation with rapid ventricular response: He underwent MATTI with cardioversion for his atrial fibrillation on 03/13. After 3 shocks with the final shock being 250 joules, he converted to sinus rhythm. He then spontaneously converted back to atrial fibrillation with rapid ventricular re sponse. He reconverted to sinus rhythm on 03/15/2018 after 2 shocks, but while waiting for the 3rd s hock. Unfortunately, he had a spontaneous conversion back to atrial fibrillation with rapid ventricu lar response. He had a nuclear stress test which was negative for any ischemia. This was done on . He has been followed closely by Cardiology. I have up-titrated his antiarrhythmics with s lightly better control of his rate. On the day of discharge, his heart rate is ranging from 110 to 1 40. I have discussed this carefully with Dr. Linton who feels that he is safe for discharge. Plan gabi l be to discharge him with attempt at rate control on amiodarone 200 mg p.o. daily, diltiazem 30 mg p .o. q.6, digoxin 125 mcg daily. He will follow up with Dr. Linton in 4 days after discharge. He has t olerated these rates well. 2. History of spinal cord injury with incomplete paraplegia at the C4 through 6 level, and indwellin g suprapubic catheter, multiple urinary tract infections: He came to us on approximately 4 years of daily Levaquin use for prophylaxis. He has had multiple infections in the past with resistant organi sms. Carbapenem resistant Pseudomonas was cultured here. Discussed this with Dr. Fonseca who feels s trongly that this is a colonization and does not represent a true urinary tract infection. Antibioti cs have been stopped. I have given him a referral to see Dr. Jersey Pedro in [facility] for ongoing management as he is likely to have urinary tract infections in the future. He is comfortable with th is plan. 3. Stroke prophylaxis: He has been discharged on Eliquis. I have discussed the risks of this medic ation with him. He has already had this preauthorized by his insurance. 4. Hypertension: He has been started on low-dose lisinopril. Follow this as an outpatient. BILLING: I spent more than 30 minutes on the day of discharge coordinating care. DISPOSITION: He is discharged home in stable condition. I have given him prescriptions for a home b lood pressure monitor as well as outpatient physical therapy. I have also written him a note to excu se him from work until he is cleared by a optical laboratory technician or his PCP. /[id number]/MODL
--- NOTE | 2018-03-20 10:43 | ASMTLACE ---
MARVINE Length of stay for Answers: 7-13 days current admission Acuity / Level of Answers: Yes Care: Did the patient have an inpatient admission? Comorbidities - select Answers: Other Notes: afib, UTI, incomplete all that apply paraplegia, chronic indwelling cath # of Emergency department Answers: 1-2 visits in the last 6 months Score: 10 Date Signed: 03/20/2018 10:42 AM Electronically Signed By:Emma Stinson RN
--- NOTE | 2018-03-20 11:28 | ASMTCMCOM ---
CM Note CM Note Notes: Reviewed chart, spoke with JOHN Noriega regarding discharge plan of care, pt's progress. Pt to discharge home independently with family support and no identified needs. PT recommending outpatient therapy for stretching and wheelchair cushion evaluation/assessment. Prescription for therapy provided by Dr. Thayer. Per Leann, pt is set up at home with a lift, necessary durable medical equiptment and family assistance. No IM signed, not applicable pt has [employer]. Pt to follow up as directed. CM available for any further issues or concerns. Disposition: Home independently with family support Date Signed: 03/20/2018 11:28 AM Electronically Signed By:Emma Stinson RN
--- NOTE | 2018-03-20 12:34 | ASDISCHSUM ---
Discharge Information Plan Status:Home with No Needs Medically Cleared to Leave:03/20/2018 Discharge Date:03/20/2018 CM D/C Disposition:Home, Routine, Self-Care ADT D/C Disposition:Home, Routine, Self-Care Projected Discharge Date:03/20/2018 Transportation at D/C:Family Discharge Delay Reason: Follow-Up Date:03/20/2018 Discharge Slot:1 - 8:01 am - 12:00 noon Final Diagnosis:afib w/ RVR, chest tightness, hx C4-6 spinal cord injury w/ incomplete paraplegia, c hronic indwelling cath, L great toe pressure injury, HTN, multiple resistant organisms Placement Information Patient Contact Information Contact Name:GEOFFREY Relationship: Address: Work Phone: City: [facility] Phone: State/[place] Code: Email: Financial Information Financial Class:HMO and PPO Plans Primary Plan Desc:[employer] Primary Plan Number:[id number] Secondary Plan Desc: Secondary Plan Number: Assessment Information [facility] Initial CM Assessment Living Arrangements What is your living Answers: With Spouse arrangement? Who do you live with? Type Of Residence What kind of residence do Answers: House you live in? Discharge Plan Comments Coordination Status Comments Notes: Pts case discussed in tx rounds. Pt is a 57 y/o man admitted for a new onset of afib, chest pain and an UTI. Pt is an incomplete quad. Cardiology is consulting on this case. No therapies ordered at this time. Pt does not think he needs any additional services at this time. Pt reports that his is his primary caregiver. Pt reports having a lift at home and reports that his son lives nearby. available for changes. Plan: Independent Date Signed: 03/12/2018 03:01 PM Electronically Signed By:RODNEY Saxena LACE LACE Length of stay for Answers: 7-13 days current admission Acuity / Level of Answers: Yes Care: Did the patient have an inpatient admission? Comorbidities - select Answers: Other Notes: afib, UTI, incomplete all that apply paraplegia, chronic indwelling cath # of Emergency department Answers: 1-2 visits in the last 6 months Score: 10 Date Signed: 03/20/2018 10:42 AM Electronically Signed By:Emma Stinson RN [facility] CM Progress Note CM Note CM Note Notes: Chart reviewed. Patient care discussed in rounds. No therapies ordered. Patient is an incomplete quadrapalegic and likely at baseline.CM to luz elena. Date Signed: 03/13/2018 01:27 PM Electronically Signed By:Yu Del Rosario RN [facility] CM Progress Note CM Note CM Note Notes: Chart reviewed. Met with patient to discuss discharge plan of care. Currently cared for by his and has household set up to accommodate his physical limitations. They decline need for services at this time but would like information regarding area [facility] services should his be unable to care for him. List provided. Patient is currently undergoing treatment and testing for atrial fib. CM to follow. Date Signed: 03/14/2018 04:11 PM Electronically Signed By:Yu Del Rosario RN [facility] CM Progress Note CM Note CM Note Notes: 03/15/2018 Case Management Note Met pt during rounds this morning. Pt is recommending home as he is at his baseline. Possible d/c needs may be IV antibiotics. Case Management will follow. Case Management d/c poc: anticipating home possibly with the need for infusion company and home health. Date Signed: 03/15/2018 12:18 PM Electronically Signed By:Kortney Smith RN [facility] CM Progress Note CM Note CM Note Notes: 03/16/2018 Case Management Note Reviewed pt during mutli disciplinary rounds this morning. There are no case management d/c needs. Pt will not require IV abx at d/c and is near his baseline from PT adn OT perspective. Case Management d/c poc: return home with family support. Case Management to follow. Date Signed: 03/16/2018 03:49 PM Electronically Signed By:Kortney Smith RN [facility] CM Progress Note CM Note CM Note Notes: 03/17/2018 Case Management Note Met w/pt today. Pt to have cardioversion today. Pt did not identify any case management d/c needs. Case Management d/c poc: home with family support for cares. Case Management available if needs change. Date Signed: 03/17/2018 12:25 PM Electronically Signed By:Kortney Smith RN [facility] CM Progress Note CM Note CM Note Notes: Pts case discussed in morning rounds. The plan remains the same. Pt will d/c independent with supportive family when medically stable. Pt was in afib last night. CM available for changes. Plan: Independent Date Signed: 03/19/2018 12:47 PM Electronically Signed By:RODNEY Saxena [facility] CM Progress Note CM Note CM Note Notes: Reviewed chart, spoke with JOHN Noriega regarding discharge plan of care, pt's progress. Pt to discharge home independently with family support and no identified needs. PT recommending outpatient therapy for stretching and wheelchair cushion evaluation/assessment. Prescription for therapy provided by Dr. Thayer. Per Leann, pt is set up at home with a lift, necessary durable medical equiptment and family assistance. No IM signed, not applicable pt has [employer]. Pt to follow up as directed. CM available for any further issues or concerns. Disposition: Home independently with family support Date Signed: 03/20/2018 11:28 AM Electronically Signed By:Emma Stinson RN Intervention Information
== END 2018-03-20 13:03 | disposition home or self-care (01) | DRG 286 ==
LOC: OBSVTOIN 19:30 → F2W 20:40
PROVIDERS: ADMIT Family Medicine; ATTEND Student in an Organized Health Care Education/Training Program
DX: I48.91 Unspecified atrial fibrillation (principal); R07.89 Other chest pain; G82.54 Quadriplegia, C5-C7 incomplete; G82.52 Quadriplegia, C1-C4 incomplete; I50.41 Acute combined systolic (congestive) and diastolic (congestive) heart failure; J90 Pleural effusion, not elsewhere classified; N31.9 Neuromuscular dysfunction of bladder, unspecified; R00.0 Tachycardia, unspecified; L89.890 Pressure ulcer of other site, unstageable; R60.9 Edema, unspecified; E66.9 Obesity, unspecified; Z87.440 Personal history of urinary (tract) infections; Z99.3 Dependence on wheelchair; Z88.2 Allergy status to sulfonamides; Z68.28 Body mass index [BMI] 28.0-28.9, adult; Z66 Do not resuscitate
CPT/HCPCS: 96365; 96366; 97161-GP; 97164-GP; 97530-GP; A9500; C1760; J0282; J0330; J0360; J0461; J0692; J1644; J1650; J1940; J2001; J2250; J2704; J2785; J3010; Q9967